=== PATIENT | male | born 1945 | race Caucasian/White ===

== ENCOUNTER 2022-08-30 09:02 | Outpatient (CLI) | payer OTHER, SELFPAY ==
[2022-08-30 14:10] LABS: PSA Screen* 0.83 ng/mL (0.10-4.00)
== END 2022-08-30 09:03 | disposition home or self-care (01) ==
LOC: FBOREF 09:03
PROVIDERS: PCP Family Medicine; Visit Provider Family Medicine
DX: Z12.5 Encounter for screening for malignant neoplasm of prostate (principal)
CPT/HCPCS: 84153

== ENCOUNTER 2022-10-18 10:06 | Emergency (ER) | payer OTHER, SELFPAY ==
[2022-10-18 10:25] VITALS: BP 140/64; PULSE 52; RESP 24; TEMP 37; O2SAT 96; BMI 26.2
[2022-10-18 11:30] VITALS: BP 140/69; RESP 18; O2SAT 98
--- NOTE | 2022-10-18 11:45 | ED.GENADULT ---
HPI - General Adult General Chief complaint: Abdominal Pain Stated complaint: Abdominal pain Time Seen by Provider: 10/18/22 11:26 Source: patient and family Mode of arrival: ambulatory Limitations: no limitations History of Present Illness HPI narrative: 77-year-old male presents to emergency department with a 3 week history of epigastric area pain. It is constant and achy and onset was gradual. It is accompanied by nausea but with no vomiting. Patient reports that it does not seem to be influenced by food. It does improve somewhat with Tylenol. He denies heavy usage of NSAIDs. Denies chest pain, no breathing difficulty. He is a smoker. He admits to daily alcohol use with wonder per day and typically 4 beers per day on the weekends. He denies prior endoscopy, no history of previous GI bleed or stomach ulcers. He reports that he had a colonoscopy 3 years ago which was uncomplicated and did not show abnormalities. He states that his bowels move slowly overall which he attributes to his soft foods diet because of his dentures. He has not been using laxatives his last bowel movement was a couple of days ago which is not abnormal for him. There has been no blood in his stools, no trauma or injury. Abdomen is not seem distended and there has been no significant weight loss. He has not tried taking any antacids to help with his symptoms. No prior history of pancreatitis or gallbladder disease. Past medical history notable for hypertension, diabetes, coronary artery disease. He had 4 stents placed about 7 years ago. He has also had diverticulitis surgically he reports he has had a hip replacement, bilateral shoulder replacements. No intra-abdominal or chest surgeries in the past other than the cardiac stents but no open procedures. Family history is negative for gallbladder disease, GI cancers. Socially alcohol and tobacco use as stated above. Past medical history is notable for only the GI symptoms as described above, otherwise all other systems are at baseline or negative times 15 systems. Related Data Home Medications Medication Instructions Recorded Confirmed acetaminophen 500 mg oral powder 500 mg PO Q6H PRN 07/09/22 08/30/22 packet (Tylenol Extra Strength) aspirin 81 mg tablet,delayed 81 mg PO QDAY 07/09/22 08/30/22 release gabapentin 300 mg capsule 300 - 600 mg PO .QHS 07/09/22 08/30/22 nitroglycerin 0.4 mg sublingual 0.4 mg sublingual Q5M PRN 07/09/22 08/30/22 tablet (Nitrostat) Ocular lubricant intraocular 08/27/22 Previous Rx's Medication Instructions Recorded amlodipine 5 mg tablet 5 mg PO QDAY #90 tabs 07/16/22 metformin 1,000 mg tablet 1,000 mg PO QDAY #90 tabs 07/20/22 meloxicam 15 mg tablet 15 mg PO QDAY #30 tabs 08/30/22 simvastatin 20 mg tablet 20 mg PO .COMPLEX #90 tabs 09/03/22 losartan 50 mg tablet 50 mg PO QDAY #90 tabs 09/21/22 omeprazole 20 mg capsule,delayed 20 mg PO DAILY #30 caps 10/18/22 release sucralfate 1 gram tablet (Carafate) 1 g PO QID PRN Acid reflux or 10/18/22 stomach ache #20 tabs Allergies Allergy/AdvReac Type Severity Reaction Status Date / Time lisinopril Allergy Unknown Unknown Verified 08/30/22 08:27 rosuvastatin Allergy Unknown Unknown Verified 08/30/22 08:27 [facility] Medical History Adenomatous polyp of colon Arteriosclerotic cardiovascular disease Bicuspid aortic valve Chronic neck and back pain Chronic obstructive pulmonary disease Diabetic neuropathy Discoid lupus erythematosus (1995) Erectile dysfunction Gastroesophageal reflux disease Hearing loss History of arterial embolism (2004) History of squamous cell carcinoma of skin (09/16/14) Hyperlipidemia Hypertensive kidney disease, stage III (03/17/17) Hypertensive retinopathy Obstructive sleep apnea syndrome Peripheral vascular disease Poorly fitting dentures Tobacco abuse Type 2 diabetes mellitus with diabetic neuropathy Surgical History History of coronary artery stent placement (1980) Status post rotator cuff repair (2006) 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 3 children. Retired. 10 cigars per day. Social EtOH. Smoking Status: Current every day smoker How often do you have a drink containing alcohol: 4 or more times a week AUDIT-C Alcohol total score: 4 Non-prescribed substance use: denies use Little interest or pleasure in doing things: not at all Feeling down, depressed, or hopeless: not at all Exam Const: Vital Signs, click to edit/add: Vital Signs - 24 hr 10/18/22 10:25 10/18/22 11:30 Temperature 98.6 F Pulse Rate [Right Pulse Oximeter] 52 L Respiratory Rate 24 18 Blood Pressure [Ri ght Upper Arm] 140/64 H 140/69 H Pulse Oximetry 96 98 Oxygen Delivery Me thod Room Air Room Air Documenting provider has reviewed patient's vital signs: yes Common normals: no apparent distress General appearance: cooperative Other: Good historian. Well kempt. HENMT: Common normals: normocephalic Head and scalp: normocephalic Face and sinus: normal facial exam Mouth: oral and palatal mucosa normal Throat: posterior oropharynx normal Eye: Common normals: conjunctivae normal Conjunctiva: conjunctiva(e) normal Other: Normal visual tracking Neck & C-Spine: Common normals: full ROM and no lymphadenopathy Chest: Common normals: palpation of chest normal Resp: Common normals: normal respiratory effort, no use of accessory muscles and clear to auscultation bilaterally Effort & inspection: able to speak in complete sentences Auscultation: clear to auscultation bilaterally Cardio: Common normals: regular rate, regular rhythm, S1 normal heart sound, S2 normal heart sound, no murmurs and peripheral pulses 2+ throughout Rate: regular rate Rhythm: regular rhythm Heart sounds: S1 normal and S2 normal Peripheral pulses: pulses 2+ throughout GI: Other: Abdomen appears nondistended. Bowel sounds are normoactive in all 4 quadrants, quite active. There is mild tenderness to the epigastric region only, no rebound tenderness or guarding. No mass. No hernia. No hepatosplenomegaly. Back & Pelvis: Common normals: thoracic and lumbar spine normal to inspection Extremity: Common normals: normal to inspection, normal capillary refill and no pedal edema Neuro: Speech: speech normal Gait (neuro): normal gait Motor exam: strength 5/5 throughout, no tremor noted and no movement abnormalities noted Psych: Common normals: thought process normal, cooperative and speech normal Attitude: engaged Speech: normal speech Thought process: normal thought process Insight: insight good Judgement: judgment good Skin: Common normals: no rashes or lesions noted General skin exam: no rashes or lesions noted Course Vital Signs Vital signs: Initial Vital Signs Temperature 98.6 F 10/18/22 10:25 Temperature Source Temporal Artery Scan 10/18/22 10:25 Pulse Rate 52 L 10/18/22 10:25 Respiratory Rate 24 10/18/22 10:25 Blood Pressure 140/64 H 10/18/22 10:25 Blood Pressure Mean 89 10/18/22 10:25 Blood Pressure Position Sitting 10/18/22 10:25 Pulse Oximetry 96 10/18/22 10:25 Oxygen Delivery Method 10/18/22 10:25 Vital Signs Temperature 98.6 F 10/18/22 10:25 Pulse Rate 52 L 10/18/22 10:25 Respiratory Rate 24 10/18/22 10:25 Blood Pressure 140/64 H 10/18/22 10:25 Pulse Oximetry 96 10/18/22 10:25 Oxygen Delivery Method 10/18/22 10:25 Temperature 98.6 F 10/18/22 10:25 Pulse Rate 52 L 10/18/22 10:25 Respiratory Rate 18 10/18/22 11:30 Blood Pressure 140/69 H 10/18/22 11:30 Pulse Oximetry 98 10/18/22 11:30 Oxygen Delivery Method 10/18/22 11:30 Medical Decision Making MDM Narrative Medical decision making narrative: Patient without severe acute abdominal exam findings, no fever. No clinical signs of dehydration or inability to take p.o. nutrition. I am suspecting gastritis possibly worsened by a regular alcohol use and/or smoking versus pancreatitis, liver disease or and other intra-abdominal pathology. I recommended a dose of omeprazole and Carafate and labs to investigate for the other concerns. EKG and troponin because of his cardiac history. If no improvement on meds and or any abnormal labs, would then recommend CT scan of the abdomen and pelvis. Patient agreeable to this plan. Update: Marked improvement with Carafate and omeprazole. Do not recommend further workup. Results of normal labs reviewed with patient. Begin omeprazole 20 mg once daily and follow up with primary care in 3-4 weeks if not improving, would recommend endoscopy. Discussed p.r.n. use of Carafate for symptomatic control. He verbalizes understanding and agreement. All questions answered, please see discharge instructions Lab Data Lab results reviewed: Yes I reviewed the patient's lab results Labs: Lab Results 10/18/22 10/18/22 Range/Units 11:55 11:55 WBC 7.81 (4.50-11.00) K/uL RBC 4.23 L (4.30-5.90) m/uL Hgb 13.6 (13.5-17.5) gm/dL Hct 41.0 (37.0-53.0) % MCV 97 (80-100) fL MCH 32 (26-34) pg MCHC 33 (32-36) gm/dL RDW Coeff of Jess 12.8 (11.5-15.5) % Plt Count 213 (140-440) K/uL Neut % (Auto) 69.0 (42.0-72.0) % Lymph % (Auto) 17.5 L (20-44) % [place] % (Auto) 8.6 (0.0-11.0) % Eos % (Auto) 4.4 (0.0-7.0) % Baso % (Auto) 0.5 (0.0-3.0) % Neut # (Auto) 5.39 (1.7-7.0) K/uL Lymph # (Auto) 1.40 (0.90-2.90) K/uL [place] # (Auto) 0.70 (0.00-0.90) K/UL Eos # (Auto) 0.34 (0.00-0.50) K/uL Baso # (Auto) 0.04 (0.00-0.30) K/uL Abs Immat Gran (auto) 0.00 (0.00-0.30) K/uL Imm/Tot Granulo (auto) 0.0 % Sodium 140 (135-149) mmol/L Potassium 5.4 H (3.6-5.1) mmol/L Chloride 106 (96-114) mmol/L Carbon Dioxide 28 (20-32) mmol/L BUN 24 (7-30) mg/dL Creatinine 1.0 (0.5-1.5) mg/dL Estimated Creat Clear 61.75 Estimated GFR 78 ml/min Glucose 72 (60-115) mg/dL Calcium 9.7 (8.4-10.6) mg/dL Total Bilirubin 0.6 (0.1-1.5) mg/dL AST 27 (12-35) U/L ALT 18 (4-50) U/L Alkaline Phosphatase 29 L (40-150) U/L Troponin I < 0.01 L (0.01-0.04) ng/mL C-Reactive Protein 1.5 H (0.5-1.0) mg/dL Total Protein 8.2 (6.0-8.3) g/dL Albumin 4.5 (3.3-5.0) g/dL Lipase 166 (23-300) U/L ECG Data Attestation: I personally reviewed and interpreted this ECG as follows: Prior ECG tracings: not available for review Interpretation: Normal sinus rhythm, with mild sinus bradycardia rate of 53 with septal changes most notable in V3 which appear chronic. [place] is mildly deviated to left, also likely chronic. No acute ischemia Discharge Plan Discharge Clinical Impression: Gastroesophageal reflux disease Patient Disposition: Home w/ Parent or Adult Condition: Improved Instructions: Diet for Stomach Ulcers and Gastritis (ED), GERD (Gastroesophageal Reflux Disease) (DC) Additional Instructions: I suspect that your symptoms are from gastritis, and inflammation of the stomach. This happens more with age, because of the some of the medicines that you are on, and unfortunately is worsened by smoking and alcohol. I would love to see you quit smoking and cut back on her alcohol. You should also avoid any carbonated beverages. I would like to start you on a medicine called omeprazole, take 20 mg once daily in the morning 30 minutes prior to a meal. Do this for the next 4 weeks and follow up with her primary care doctor. If things have not improved markedly, you should be scheduled for an endoscopy to look for ulcers, an infection called H.pylori or other abnormalities. I will also give you a prescription for Carafate, the 2nd medicine that I gave you here in the emergency room. Use this if your symptoms are bothersome but only on an as-needed basis. For most people, once they start the omeprazole their symptoms improved markedly within a couple of days and you no longer need the Carafate. You may use the Carafate up to 4 times daily. Activity Level: No Restrictions Discharge Diet: Regular Prescriptions: New omeprazole 20 mg capsule,delayed release(DR/EC) 20 mg PO DAILY Qty: 30 2RF sucralfate [Carafate] 1 gram tablet 1 g PO QID PRN (Reason: Acid reflux or stomach ache) Qty: 20 0RF No Action Ocular lubricant intraocular gabapentin 300 mg capsule 300 - 600 mg PO .QHS Tylenol Extra Strength 500 mg powder in packet 500 mg PO Q6H PRN nitroglycerin [Nitrostat] 0.4 mg tablet, sublingual 0.4 mg sublingual Q5M PRN Rx Instructions: do not exceed 3 doses per episode aspirin 81 mg tablet,delayed release (DR/EC) 81 mg PO QDAY amlodipine 5 mg tablet 5 mg PO QDAY Qty: 90 1RF metformin 1,000 mg tablet 1,000 mg PO QDAY Qty: 90 3RF meloxicam 15 mg tablet 15 mg PO QDAY Qty: 30 12RF simvastatin 20 mg tablet 20 mg PO .COMPLEX Qty: 90 1RF Rx Instructions: 20 mg orally M, W, F; losartan 50 mg tablet 50 mg PO QDAY Qty: 90 1RF Follow Up/Referrals: Johnson Madera MD [Primary Care Provider] - Stand Alone [facility]: [facility] Info Inst[facility]
[2022-10-18 12:00] VITALS: BP 146/76; PULSE 51; O2SAT 96
[2022-10-18] MEDS: SUCRALFATE 1 GM TABLET PO (12:03)
[2022-10-18] MEDS: OMEPRAZOLE 20 MG CAPSULE DR 40 MG PO (12:03)
[2022-10-18 12:11] LABS: Basophils Absolute Auto 0.04 K/uL (0.00-0.30); Basophils Percent Auto 0.5 % (0.0-3.0); Eosinophils Absolute Auto 0.34 K/uL (0.00-0.50); Eosinophils Percent Auto 4.4 % (0.0-7.0); Hemoglobin* 13.6 gm/dL (13.5-17.5); Lymphocytes Percent Auto 17.5 % (20-44); Mean Corpuscular HGB Conc 33 gm/dL (32-36); Mean Corpuscular Hemoglobin 32 pg (26-34); Mean Corpuscular Volume 97 fL (80-100); Monocytes Percent Auto 8.6 % (0.0-11.0); Neutrophils Absolute Auto 5.39 K/uL (1.7-7.0); Platelet Count* 213 K/uL (140-440); RDW Coefficient of Variation % 12.8 % (11.5-15.5); Red Blood Count 4.23 m/uL (4.30-5.90); White Blood Count* 7.81 K/uL (4.50-11.00)
[2022-10-18 12:21] LABS: Albumin* 4.5 g/dL (3.3-5.0); Chloride* 106 mmol/L (96-114)
[2022-10-18 12:22] LABS: Potassium* 5.4 mmol/L (3.6-5.1); Sodium* 140 mmol/L (135-149)
[2022-10-18 12:24] LABS: Alanine Aminotransferase* 18 U/L (4-50); Alkaline Phosphatase* 29 U/L (40-150); Aspartate Amino Transferase* 27 U/L (12-35); Bilirubin Total* 0.6 mg/dL (0.1-1.5); Blood Urea Nitrogen* 24 mg/dL (7-30); Carbon Dioxide* 28 mmol/L (20-32); Est. Creatinine Clearance* 61.75; Estimated Glomerular Filt Rate 78 ml/min; Glucose* 72 mg/dL (60-115); Lipase* 166 U/L (23-300); Total Protein* 8.2 g/dL (6.0-8.3)
[2022-10-18 12:25] LABS: Calcium* 9.7 mg/dL (8.4-10.6)
[2022-10-18 12:27] LABS: C Reactive Protein* 1.5 mg/dL (0.5-1.0)
[2022-10-18 12:29] LABS: Slide Review Reflex No
[2022-10-18 12:30] VITALS: BP 148/70; PULSE 50; O2SAT 98
[2022-10-18 12:38] LABS: Troponin I* < 0.01 ng/mL (0.01-0.04)
== END 2022-10-18 13:04 | disposition home or self-care (01) ==
PROVIDERS: Emergency Provider Family Medicine; PCP Family Medicine
DX: K21.9 Gastro-esophageal reflux disease without esophagitis (principal)
CPT/HCPCS: 36415; 80053; 83690; 84484; 85025; 86140; 93005; 99283; 99284; A9270

== ENCOUNTER 2023-03-01 09:58 | Outpatient (CLI) | payer OTHER, SELFPAY ==
[2023-03-01 13:42] LABS: Basophils Absolute Auto 0.02 K/uL (0.00-0.30); Basophils Percent Auto 0.3 % (0.0-3.0); Eosinophils Absolute Auto 0.29 K/uL (0.00-0.50); Eosinophils Percent Auto 4.2 % (0.0-7.0); Hematocrit 46.2 % (37.0-53.0); Hemoglobin* 15.3 gm/dL (13.5-17.5); Immature Granulocytes Abs Auto 0.12 K/uL (0.00-0.30); Immature Granulocytes Pct Auto 1.7 %; Lymphocytes Percent Auto 19.9 % (20-44); Mean Corpuscular HGB Conc 33 gm/dL (32-36); Mean Corpuscular Hemoglobin 31 pg (26-34); Mean Corpuscular Volume 95 fL (80-100); Neutrophils Absolute Auto 4.53 K/uL (1.7-7.0); Neutrophils Percent Auto 64.9 % (42.0-72.0); Platelet Count* 250 K/uL (140-440); RDW Coefficient of Variation % 12.3 % (11.5-15.5); Red Blood Count 4.87 m/uL (4.30-5.90); White Blood Count* 6.98 K/uL (4.50-11.00)
[2023-03-01 13:53] LABS: Slide Review Reflex No
[2023-03-01 14:02] LABS: Chloride* 105 mmol/L (96-114)
[2023-03-01 14:03] LABS: Potassium* 5.1 mmol/L (3.6-5.1); Sodium* 137 mmol/L (135-149)
[2023-03-01 14:05] LABS: Creatinine* 1.1 mg/dL (0.5-1.5); Estimated Glomerular Filt Rate 70 ml/min
[2023-03-01 14:06] LABS: Blood Urea Nitrogen* 19 mg/dL (7-30); Calcium* 9.1 mg/dL (8.4-10.6); Carbon Dioxide* 25 mmol/L (20-32); Glucose* 124 mg/dL (60-115)
== END 2023-03-01 09:59 | disposition home or self-care (01) ==
PROVIDERS: PCP Family Medicine; Visit Provider Family Medicine
DX: R50.9 Fever, unspecified (principal); I10 Essential (primary) hypertension; E78.5 Hyperlipidemia, unspecified; I12.9 Hypertensive chronic kidney disease with stage 1 through stage 4 chronic kidney disease, or unspecified chronic kidney disease; N18.30 Chronic kidney disease, stage 3 unspecified
CPT/HCPCS: 80048; 84443; 85025

== ENCOUNTER 2023-06-30 08:58 | Outpatient (CLI) | payer OTHER, SELFPAY ==
[2023-06-30 13:30] LABS: Chloride* 104 mmol/L (96-114)
[2023-06-30 13:31] LABS: Potassium* 4.6 mmol/L (3.6-5.1); Sodium* 139 mmol/L (135-149)
[2023-06-30 13:33] LABS: Creatinine* 1.7 mg/dL (0.5-1.5); Estimated Glomerular Filt Rate 41 ml/min
[2023-06-30 13:34] LABS: Anion Gap 11 mEq/L (7-15); Blood Urea Nitrogen* 28 mg/dL (7-30); Calcium* 9.5 mg/dL (8.4-10.6); Carbon Dioxide* 24 mmol/L (20-32); Glucose* 161 mg/dL (60-115)
[2023-06-30 13:44] LABS: NT Pro B Type NatriureticPept* 4130 pg/mL
== END 2023-06-30 08:59 | disposition home or self-care (01) ==
PROVIDERS: PCP Family Medicine; Visit Provider Family Medicine
DX: I50.20 Unspecified systolic (congestive) heart failure (principal)
CPT/HCPCS: 80048; 83880

== ENCOUNTER 2023-07-13 15:12 | Outpatient (REF) | payer OTHER, SELFPAY ==
[2023-07-13 16:56] LABS: Chloride* 106 mmol/L (96-114); Potassium* 4.5 mmol/L (3.6-5.1); Sodium* 140 mmol/L (135-149)
[2023-07-13 16:59] LABS: Anion Gap 9 mEq/L (7-15); Blood Urea Nitrogen* 28 mg/dL (7-30); Carbon Dioxide* 25 mmol/L (20-32); Creatinine* 1.7 mg/dL (0.5-1.5); Estimated Glomerular Filt Rate 41 ml/min
[2023-07-13 17:00] LABS: Calcium* 9.9 mg/dL (8.4-10.6); Glucose* 109 mg/dL (60-115)
[2023-07-13 17:11] LABS: NT Pro B Type NatriureticPept* 2570 pg/mL
== END 2023-07-13 15:13 | disposition home or self-care (01) ==
LOC: NPINS 15:12
PROVIDERS: PCP Family Medicine; Visit Provider Internal Medicine
DX: I50.22 Chronic systolic (congestive) heart failure (principal)
CPT/HCPCS: 80048; 83880

== ENCOUNTER 2023-08-09 08:23 | Outpatient (REF) | payer OTHER, SELFPAY ==
[2023-08-09 08:48] LABS: Chloride* 108 mmol/L (96-114)
[2023-08-09 08:49] LABS: Potassium* 4.5 mmol/L (3.6-5.1); Sodium* 142 mmol/L (135-149)
[2023-08-09 08:51] LABS: Creatinine* 1.7 mg/dL (0.5-1.5); Estimated Glomerular Filt Rate 41 ml/min
[2023-08-09 08:52] LABS: Anion Gap 11 mEq/L (7-15); Blood Urea Nitrogen* 27 mg/dL (7-30); Calcium* 9.1 mg/dL (8.4-10.6); Carbon Dioxide* 23 mmol/L (20-32); Glucose* 99 mg/dL (60-115)
== END 2023-08-09 08:24 | disposition home or self-care (01) ==
LOC: NPINS 08:23
PROVIDERS: PCP Family Medicine; Visit Provider Internal Medicine Cardiovascular Disease
DX: I50.22 Chronic systolic (congestive) heart failure (principal)
CPT/HCPCS: 80048

== ENCOUNTER 2024-02-14 10:28 | Outpatient (CLI) | payer OTHER, SELFPAY ==
--- OUTSIDE RECORDS SUMMARY | 2024-02-14 10:36 | XMS_ITS ---
Author Name Unknown Organization [facility] Address [address] [place] [address] Care Team Providers Care Appraiser Timber Name Role Phone Unavailable Unavailable Unavailable Surgery Details Not on file Complications Check Surgery Details section. Procedure Estimated Blood Loss Check Surgery Details section. Procedure Findings Check Surgery Details section. Procedure Specimens Taken Check Surgery Details section.
--- OUTSIDE RECORDS SUMMARY | 2024-02-14 10:36 | XMS_ITS | Encounter Summary ---
Author Name Unknown Organization [facility] Address [address] [place] [address] Care Team Providers Care General Adjuster Name Role Phone Elsewhere, Pcp Primary Care Provider Unavailabl e Encounter Details Date Type Department Care Team (Late st Contact Info) Description 05/15/2008 Historical Ophthalmology [facility]ST [facility] Nancy Villanueva M.D. Social History Tobacco Use Types Packs/Day Years Used Date Smoking Tobacco: Never Assessed Sex and Gender Information Value Date Recorded Sex Assigned at Not on file Gender Identity Not on file Sexual Orientation Not on file documented as of this encounter Progress Notes * Nancy Villanueva M.D. - 05/15/2008 9:45 AM CDT Eye General CHIEF COMPLAINT Diabetic eye exam HISTORY OF PRESENT ILLNESS Non insulin dependent diabetic. blood sugars are stable. last A1C 5.8. At night when he closes his eyes he can see floaters. He was seen by his local Allocation Analyst for this and was told these were floaters. He denies changes with his vision. No flashes of light. JAL: DM dx in 11/14. He sees Dr. Horton in [place] who found a lot of scarring - no outside eye notes available to me. IMPRESSION / REPORT / PLAN Consult requested by: Nestor Erazo [id number] #1 Diabetes mellitus, no eye complications. Plan: monitor periodically. He is seen regularly at home. #2 Hypertension, with ocular findings. DIAGNOSIS #1 Diabetes mellitus, no eye complications. #2 Hypertension, with ocular findings. CD Reports - EYEGEN Id: [id number] Status: Fnl documented in this encounter Plan of Treatment Not on file documented as of this encounter Visit Diagnoses Not on filedocumented in this encounter Care Teams General Adjuster Relationship Specialty Start Date End Date Elsewhere, Pcp PCP - General Family Medicine 11/10/20 documented as of this encounter
--- OUTSIDE RECORDS SUMMARY | 2024-02-14 10:36 | XMS_ITS | Referral Summary ---
Author Name Unknown Organization [facility] Address [address] [place] [address] Care Team Providers Care Lard Bleacher Name Role Phone Elsewhere, Pcp Primary Care Provider Unavailabl e Source Comments Patient records contain information from all sites at [facility]. For routine questions regarding patient records, call [phone] during business hours, M-F 8:00 AM - 5:00 PM Central Time. Record requests for emergency care only can be directed to [phone] at any time.[facility] Allergies Active Allergy Reactions Criticality Noted Date Comments Gabapentin Other (see comments) 03/15/2011 Sore throat Lisinopril Other (see comments) 06/13/2014 Leg cramps Rosuvastatin Myalgia Low 02/26/2020 Medications Medication Sig Dispensed Refills Start Date End Date Status acetaminophen (for_TYLENOL) 500 mg tablet Take 1 tablet by mouth every morning. 0 03/04/2011 Active amoxicillin (for_AMOXIL) 500 mg capsule Take by mouth See Admin Instructions. 0 11/29/2016 Active ASPIRIN ORAL Take 1 tablet by mouth every morning. 0 11/24/2015 Active LANOLIN/MINERAL OIL/PETROLATUM (EYE LUBRICANT OPHT) Administer 1 drop into both eyes every 4 (four) hours as needed. 0 09/18/2015 Active metoprolol succinate (TOPROL-XL) 25 mg 24 hr tabletIndications: Hypertension And Chronic Kidney Disease Stage 3 And Heart Disease Without Congestive Heart Failure (HCC) Take 1 tablet (25 mg total) by mouth at bedtime. 90 tablet 3 04/11/2020 Active metFORMIN (GLUCOPHAGE) 1,000 mg tabletIndications: Peripheral Vascular Disease (HCC),Diabetes Mellitus Type 2 With Diabetic Neuropathy (HCC) Take 1 tablet (1,000 mg total) by mouth 2 (two) times a day with meals. 180 tablet 3 04/11/2020 Active simvastatin (ZOCOR) 20 mg tabletIndications: Peripheral Vascular Disease (HCC),Hypertension And Chronic Kidney Disease Stage 3 And Heart Disease Without Congestive Heart Failure (HCC) Take 1 tablet (20 mg total) by mouth 3 (three) times a week. 36 tablet 3 07/25/2020 Active amLODIPine (NORVASC) 5 mg tabletIndications: Hypertension And Chronic Kidney Disease Stage 3 And Heart Disease Without Congestive Heart Failure (HCC) Take 1 tablet (5 mg total) by mouth at bedtime. 90 tablet 3 07/25/2020 Active hydroCHLOROthiazid e (MICROZIDE) 12.5 mg capsule Take 1 capsule (12.5 mg total) by mouth daily. 90 capsule 3 10/29/2020 Active Additional Information Patient not taking.Reported on 06/17/2021 losartan (COZAAR) 25 mg tabletIndications: Hypertension Essential Primary Take 2 tablets (50 mg total) by mouth at bedtime. 180 tablet 3 03/19/2021 Active Active Problems Patient Care Coordination No te Formatting of this note migh t be different from the original. Spouse: Qiana Children: geremias luna, lucy, 11 grandbabies Work: no JUAN F on file for: Qiana Cell #: [phone] Trinh pedersen goes to [place] Problem Noted Date Diagnosed Date Hyperlipidemia 2018 Hypertension And Chronic Kid david Disease Stage 3 And Heart Disease Without Congestive Heart Failure 03/17/2017 Overview: Hypertension (HTN) And CKD Stage 1-4 & Heart Dis Without CHF Arthroplasty Total Hip Replacement Status Post R ight 09/21/2016 Coronary Stent Status Post 09/02/2016 Arthritis Hip 09/02/2016 Albuminuria 07/29/2016 Overview: He takes Losartan. Diabetes Mellitus Type 2 With Diabetic Neuropath y 03/29/2016 Overview: DM2 Neuropathy Apnea Sleep Obstructive 03/29/2016 Overview: CPAP 9 cm water pressure. AHI: 49.6. 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 Central canal stenosis. Foraminal narrowing. Radiculopathy Lumbar 03/20/2014 Pain Limb Generalized 06/12/2013 Pain Low Back Unspecified 06/12/2013 Keratosis Actinic 02/07/2012 Bradycardia Sinus 03/31/2011 Overview: Alopecia Areata 03/31/2011 Pain Back 03/31/2011 Lichen Planus 03/31/2011 Overview: Benign chronic dermatitis. Polyp Colon 03/31/2011 Overview: Small polyp with no hyperplasia or dysplasia. Peripheral Vascular Disease 03/20/2011 Overview: Peripheral Vascular Disease Lupus Erythematosus 03/20/2011 Overview: Biopsy of skin from right mastiod showed lupus eryhtematosus. Done at [facility]. Diverticulosis Colon 03/20/2011 Overview: Per CTA of Abdomen done at [facility]. Renal Cyst Disease 03/20/2011 Overview: Per CTA of Abdomen done at [facility]. Sprain Rotator Cuff Initial 03/20/2011 Overview: High grade supraspinatous and infraspinatous. MRI done at [facility]. 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 Hypertensive Retinopathy 05/15/2008 Atherosclerotic Heart Diseas e Of [place] Coronary Artery Without Angina Pectoris 05/14/2008 Abuse Tobacco Smoking 05/14/2008 Rotator Cuff Disorder 05/14/2008 Resolved Problems Problem Noted Date Diagnosed Date Resolved Date Spasm Muscle 03/17/2017 2018 Embolism Thrombosis Lower Extremity Artery 07/29/2016 2018 Overview: Arterial Embolism, Right foot Hx Immunizations Name Administration Dates Next Due Influenza Split 08/21/2015,09/07/2007 Influenza, Seasonal, Injectable 10/12/2012,09/10 Influenza, Unspecified 07/29/2016,2014,10/29/2014,2011,07/22/2011,09/07/2007 PCV13 03/03/2015 PPSV23(Discontinued) 06/08/2012,12/12/2007 Td (Adult), adsorbed 09/10/2003 Td, (Adult) Unspecified 09/10/2003 Tdap 06/13/2014 influenza high dose (65 year s or older) (PF) 08/07/2019,08/04/2018,07/29/2016,2014,08/21/2015 Social History Tobacco Use Types Packs/Day Years Used Date Smoking Tobacco: Every Day Cigarettes 0.5 Smokeless Tobacco: Never Tobacco Cessation:Ready to Q uit: No; Counseling Given: Yes Alcohol Use Standard Drinks/Week Comments Yes 0 (1 standard drink = 0.6 oz pur e alcohol) 1 drink per day AUDIT-C Answer Date Recorded Q1: How often do you have a drink containing alcohol? 4 or more times a week 07/25/2020 Q2: How many drinks containi ng alcohol do you have on a typical day when you are drinking? 1 or 2 0 Q3: How often do you have si x or more drinks on one occasion? Never 07/25/2020 PHQ-2 Answer Date Recorded PHQ-2 Score 0 01/15/2020 Nutrition Answer Date Recorded Nutrition: EVOO Fat Source Unknown 12/31 Nutrition: Servings of Fruits/Vegetables per Day Not on file 12/31/2020 Dental Answer Date Recorded Dental: Regular Dentist Unknown 12/31/19 21 Sex and Gender Information Value Date Recorded Sex Assigned at Not on file Gender Identity Not on file Sexual Orientation Not on file Last Filed Vital Signs Vital Sign Reading Time Taken Comments Blood Pressure 138/72 06/17/2021 11:44 AM CDT Pulse 50 06/17/2021 11:44 AM CDT Temperature 36.3 ??C (97.3 ??F) 07/25/2020 11:36 AM C DT Respiratory Rate 16 07/25/2020 11:36 AM CDT Oxygen Saturation 97% 07/25/2020 11:36 AM CDT Inhaled Oxygen Concentration - - Weight 83.7 kg (184 lb 8.4 oz) 06/17/2021 11:43 AM CDT Height 171.9 cm (5' 7.68) 06/17/2021 11:43 AM C DT Body Mass Index 28.33 06/17/2021 11:43 AM CDT Plan of Treatment Not on file Medical Devices Implanted Type Area Furniture Mover Device Identifier Shelf Expiration Date Model / Serial / Lot Premier 3.0 X 12 - [employer] [id number] Implanted:Qty: 1 on 09/09/2015 Cardiac Stent [employer] Description:Device Manufactu rer - [employer]. Device Status Text - [id number]. Premier 3.0 X 28 - [employer] [id number] Implanted:Qty: 1 on 09/09/2015 Cardiac Stent [employer] Description:Device Manufactu rer - [employer]. Device Status Text - [id number]. Premier 4.0 X 20 - [employer] [id number] Implanted:Qty: 1 on 09/09/2015 Cardiac Stent [employer] Description:Device Manufactu rer - [employer]. Device Status Text - [id number]. Hip Implant Hip Implant Right: Hip Hip Implant- 6 Implanted:2015 (Quantity not on file) Hip Implant Right: Hip Care Teams Lard Bleacher Relationship Specialty Start Date End Date Elsewhere, Pcp PCP - General Family Medicine 11/10/20
--- OUTSIDE RECORDS SUMMARY | 2024-02-14 10:36 | XMS_ITS | Clinical Summary ---
Author Name Unknown Organization [facility] Address [address] [place] [address] Care Team Providers Care Secondary English Teacher Name Role Phone Elsewhere, Pcp Primary Care Provider Unavailabl e Source Comments Patient records contain information from all sites at [facility]. For routine questions regarding patient records, call [phone] during business hours, M-F 8:00 AM - 5:00 PM Central Time. Record requests for emergency care only can be directed to [phone] at any time.[facility] Allergies Active Allergy Reactions Criticality Noted [...] F on file for: Qiana Cell #: [phone] Trinh pedersen goes to [place] Problem Noted Date Diagnosed Date Hyperlipidemia 2018 [...] Risk Medication 03/29/2016 Bicuspid Aortic Valve 10/15/2015 Fire Prevention Chief (Current) Anticoagulant Treatment 08/08 Primary Osteoarthritis Cervical [...] right mastiod showed lupus eryhtematosus. Done at [facility]. Diverticulosis Colon 03/20/2011 Overview: Per CTA of Abdomen done at [facility]. Renal Cyst Disease 03/20/2011 Overview: Per CTA of Abdomen done at [facility]. Sprain Rotator Cuff Initial 03/20/2011 Overview: High grade supraspinatous and infraspinatous. MRI done at [facility]. 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 Abuse [...] (65 year s or older) (PF) 08/07/2019,08/04/2018,07/29/2016,2014,08/21/2015 Family History Medical History Relation Name Comments Heart murmur Brother Peripheral vascular disease Brother Urolithiasis Brother Aneurysm Father Coronary artery disease Father Dementia Father Heart attack Father Heart failure Father Hypertension Father Osteoarthritis Father Peripheral vascular disease Father Skin cancer Father Cataracts Mother Coronary artery disease Mother Diabetes Mother End stage renal disease Mother Glaucoma Mother Breast cancer Sister Depression Sister Kidney disease Sister Ovarian cancer Sister Urolithiasis Sister Relation Name Status Comments Brother Father Mother (Age 79) Sister Social History Tobacco Use Types Packs/Day Years [...] 06/17/2021 11:43 AM CDT Plan of Treatment Health Maintenance Due Date Last Done Comments Office Visit for Blood Press ure Check / Re-check 1945 Hepatitis B Vaccines (1 of 3 - Risk 3-dose series) 2007 Zoster Vaccines (2 of 3) 10/04/2017 08/09/2017 Dilated Eye Exam 07/24/2020 07/24/2019 (Per formed elsewhere), 07/19/2018 (Performed elsewhere), 07/18/2017, Additional history exists Diabetic Office Visit with F oot Exam 01/14/2021 01/15/2020, 03/08/2019, 03/08/2019, Additional history exists Hemoglobin A1C 04/24/2021 10/24/2020, 06/2020, 01/15/2020, Additional history exists Urine Albumin 07/25/2021 07/25/2020, 07/10, 08/03/2018, Additional history exists COVID-19 Vaccine (2022- 4 season) 2023 05/24/2022, 08/06/2021, 01/06/2021, Additional history exists Influenza Vaccine (#1) 2023 , 08/05/2021, 07/30/2020, Additional history exists Depression Screening (Annual PHQ-2) 11/07/2023 Fall Risk Screen (Annual) 11/07/2023 DTaP,Tdap,and Td Vaccines (2 - Td or Tdap) 06/13/2024 06/13/2014, 09/10/2003, 09/10/2003 Creatinine Level (Kidney Fun ction Test) 09/27/2024 09/27/2023, 06/22/2023, 06/03/2023, Additional history exists Potassium Level 09/27/2024 09/27/2023, 06/07, 06/03/2023, Additional history exists Sodium Level 09/27/2024 09/27/2023, 06/07, 06/03/2023, Additional history exists Abdominal Aortic Aneurysm (A AA) Screen Discontinued 06/01/2012, 12/10/2004 Colonoscopy Discontinued 09/16/2014, 09/16/2014 Colonoscopy Discontinued 09/16/2014, 09/16/2014 Colorectal Cancer Screening Discontinued Colorectal Cancer Surveillance Discontinued Pneumococcal vaccine (65+ years) Completed 03/03/2015, 06/08/2012, 12/12/2007 Hepatitis C Screening Completed 03/15/[address] Colonography Discontinued Cologuard Discontinued FIT Discontinued Medical Devices Implanted Type Area Deep Fat Fry Cook Device Identifier Shelf Expiration Date Model / Serial / Lot Premier 3.0 X 12 - Aguilar [id number] Implanted:Qty: 1 on 09/09/2015 Cardiac Stent [employer] Description:Device Manufactu rer - [employer]. Device Status Text - [id number]. Premier 3.0 X 28 - Aguilar [id number] Implanted:Qty: 1 on 09/09/2015 Cardiac Stent [employer] Description:Device Manufactu rer - [employer]. Device Status Text - [id number]. Premier 4.0 X 20 - Aguilar [id number] Implanted:Qty: 1 on 09/09/2015 Cardiac Stent [employer] Description:Device Manufactu rer - [employer]. Device Status Text - [id number]. Hip Implant Hip Implant Right: Hip Hip Implant- 6 Implanted:2015 (Quantity not on file) Hip Implant Right: Hip Care Teams Secondary English Teacher Relationship Specialty Start Date End Date Elsewhere, Pcp PCP - General Family Medicine 11/10/20
--- OUTSIDE RECORDS SUMMARY | 2024-02-14 10:36 | XMS_ITS | Encounter Summary ---
Author Name Unknown Organization [facility] Address [address] [place] [address] Care Team Providers Care Inflatable Buildings Laminator Name Role Phone Elsewhere, Pcp Primary Care Provider Unavailabl e Encounter Details Date Type Department Care Team (Late st Contact Info) Description 06/30/2009 Historical Ophthalmology [facility] Nancy Villanueva M.D. Social History Tobacco Use Types Packs/Day Years Used Date Smoking Tobacco: Never Assessed Sex and Gender Information Value Date Recorded Sex Assigned at Not on file Gender Identity Not on file Sexual Orientation Not on file documented as of this encounter Progress Notes * Nancy Villanueva M.D. - 06/30/2009 8:49 AM CDT Eye General CHIEF COMPLAINT Diabetic eye exam HISTORY OF PRESENT ILLNESS Non insulin dependent diabetic. Blood sugars have not been checked in the last 3 months. He notes slight changes with his vision at near, not as good as before. Distance vision he feels is good. He has floaters, has not noticed them for the last 6 months. He sees flashes of light at night when he wakes from sleeping. He also can see them in exam room today when he closes his eyes. He describes as green or could be purple or senior security engineer yellow. As soon as he goes to sleep then he does not notice them. JAL: Glucose 123, A1C 6.5% today. He saw an eye care provider (Dr.Mary Clark) at home ~ 3 -4 months ago. Had floaters that are mostly gone - only now at night sees different colors. 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 Plan: monitor periodically. 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 CDM Reports - EYEGEN Id: [id number] Status: Fnl documented in this encounter Plan of Treatment Not on file documented as of this encounter Visit Diagnoses Not on filedocumented in this encounter Care Teams Inflatable Buildings Laminator Relationship Specialty Start Date End Date Elsewhere, Pcp PCP - General Family Medicine 11/10/20 documented as of this encounter
== END 2024-02-14 10:29 | disposition home or self-care (01) ==
LOC: FBOREF 10:29
PROVIDERS: PCP Family Medicine; Visit Provider Family Medicine
DX: I10 Essential (primary) hypertension (principal); E78.2 Mixed hyperlipidemia; Z12.5 Encounter for screening for malignant neoplasm of prostate
CPT/HCPCS: 80048; 80061; 84460; 85025; G0103

== ENCOUNTER 2024-06-11 13:12 | Outpatient (CLI) | payer OTHER, SELFPAY ==
--- OUTSIDE RECORDS SUMMARY | 2024-06-11 13:18 | XMS_ITS | Encounter Summary ---
Author Organization [facility] Address [address] [place] [address] Care Team Providers Care Deburring And Tooling Machine Operator Name Role Phone Elsewhere, Pcp Primary Care [...] as green or could be purple or oreman yellow. As soon as he goes to sleep then he does not notice them. JAL: Glucose 123, A1C 6.5% today. He saw an eye care provider (Dr.Mary Clark) at home ~ 3 -4 months ago. Had floaters that are mostly gone - only now at night sees different colors. IMPRESSION / REPORT / PLAN Management requested by: Dimitris Erazo [id number] #1 Diabetes mellitus, Type 2, no eye complications. Plan: monitor periodically. 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 CDM Reports - EYEGEN Id: [id number] Status: Fnl documented in this encounter Plan of Treatment Not on file documented as of this encounter Visit Diagnoses Not on filedocumented in this encounter Care Teams Deburring And Tooling Machine Operator Relationship Specialty Start Date End Date Elsewhere, Pcp PCP - General Family Medicine 11/10/20 documented as of this encounter
--- OUTSIDE RECORDS SUMMARY | 2024-06-11 13:18 | XMS_ITS ---
Author Organization [facility] Address [address] [place] [address] Care Team Providers Care Back End Developer Name Role Phone Unavailable Unavailable Unavailable Surgery Details Not on file Complications Check Surgery Details section. Procedure Estimated Blood Loss Check Surgery Details section. Procedure Findings Check Surgery Details section. Procedure Specimens Taken Check Surgery Details section.
--- OUTSIDE RECORDS SUMMARY | 2024-06-11 13:18 | XMS_ITS | Clinical Summary ---
Author Organization [facility] Address [address] [place] [address] Care Team Providers Care Primer Powder Blender Wet Name Role Phone Elsewhere, Pcp Primary Care Provider Unavailabl e Source Comments Patient records contain information from all sites at [facility]. For routine questions regarding patient records, call [phone] during business hours, M-F 8:00 AM - 5:00 PM Central Time. Record requests for emergency care only can be directed to [phone] at any time.[facility] Allergies Active Allergy Reactions Criticality Noted Date Comments Gabapentin Other (see comments) 03/15/2011 Sore throat Lisinopril Other (see comments) 06/13/2014 Leg cramps Rosuvastatin Myalgia Low 02/26/2020 Medications Medication Sig Dispensed Refills Start Date End Date Status acetaminophen (for_TYLENOL) 500 mg tablet Take 1 tablet by mouth every morning. 03/04/2011 Active amoxicillin (for_AMOXIL) 500 mg capsule Take by mouth See Admin Instructions. 11/29/2016 Active ASPIRIN ORAL Take 1 tablet by mouth every morning. 11/24/2015 Active LANOLIN/MINERAL OIL/PETROLATUM (EYE LUBRICANT OPHT) Administer 1 drop into both eyes every 4 (four) hours as needed. 09/18/2015 Active metoprolol succinate (TOPROL-XL) 25 mg [...] different from the original. 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 Diabetes Mellitus Type 2 With Diabetic Neuropath y 03/29/2016 Overview (03/29/2017): DM2 Neuropathy Apnea Sleep Obstructive 03/29/2016 Overview (05/18/2018): CPAP 9 cm water pressure. AHI: 49.6. 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 Central canal stenosis. Foraminal narrowing. Radiculopathy Lumbar 03/20/2014 Pain Limb Generalized 06/12/2013 Pain Low Back Unspecified 06/12/2013 Keratosis Actinic 02/07/2012 Bradycardia Sinus 03/31/2011 Overview (2018): Alopecia Areata 03/31/2011 Pain Back 03/31/2011 Lichen Planus 03/31/2011 Overview (05/18/2018): Benign chronic dermatitis. Polyp Colon 03/31/2011 Overview (05/18/2018): Small polyp with no hyperplasia or dysplasia. Peripheral Vascular Disease 03/20/2011 Overview (05/18/2018): Peripheral Vascular Disease Lupus Erythematosus 03/20/2011 Overview (05/18/2018): Biopsy of skin from right mastiod showed lupus eryhtematosus. Done at [facility]. Diverticulosis Colon 03/20/2011 Overview (05/18/2018): Per CTA of Abdomen done at [facility]. Renal Cyst Disease 03/20/2011 Overview (05/18/2018): Per CTA of Abdomen done at [facility]. Sprain Rotator Cuff Initial 03/20/2011 Overview (05/18/2018): High grade supraspinatous and infraspinatous. MRI done at [facility]. 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 Abuse Tobacco Smoking 05/14/2008 Rotator Cuff Disorder 05/14/2008 Resolved Problems Problem Noted Date Diagnosed Date Resolved Date Spasm Muscle 03/17/2017 2018 Embolism Thrombosis Lower Extremity Artery 07/29/2016 2018 Overview (03/29/2017): Arterial Embolism, Right foot Hx Immunizations Name Administration Dates Next Due Influenza Split 08/21/2015,09/07/2007 Influenza, Seasonal, Injectable 10/12/2012,09/10 Influenza, Unspecified 07/29/2016,2014,10/29/2014,2011,07/22/2011,09/07/2007 PCV13 03/03/2015 PPSV23 06/08/2012,12/12/2007 Td (Adult), adsorbed 09/10/2003 Td, (Adult) [...] Used Date Smoking Tobacco: Every Day Cigarettes Smokeless Tobacco: Never Tobacco Cessation:Ready to Q [...] 01/14/2021 01/15/2020, 03/08/2019, 03/08/2019, Additional history exists Urine Albumin 07/25/2021 07/25/2020, 07/10, 08/03/2018, Additional history exists COVID-19 Vaccine (5 - 2022-2 4 season) 2023 05/24/2022, 08/06/2021, 01/06/2021, Additional history exists Depression Screening (Annual PHQ-2) 11/07/2023 Fall Risk Screen (Annual) 11/07/2023 Hemoglobin A1C 11/27/2023 2023, 10/07, 07/15/2020, Additional history exists DTaP,Tdap,and Td Vaccines (2 - Td or Tdap) 06/13/2024 06/13/2014, 09/10/2003, 09/10/2003 Influenza Vaccine (#1) 2024 , 08/05/2021, 07/30/2020, Additional history exists Creatinine Level (Kidney Fun ction Test) 09/27/2024 [...] FIT Discontinued Medical Devices Implanted Type Area Pharmacy Coordinator Device Identifier Shelf Expiration Date Model / Serial / Lot Premier 3.0 X 12 - Aguilar [id number] Implanted:Qty: 1 on 09/09/2015 Cardiac Stent [employer] Description:Device Manufactu rer - [employer]. Device Status Text - [id number]. Premier 3.0 X 28 - Aguilar [id number] Implanted:Qty: 1 on 09/09/2015 Cardiac Stent [employer] Description:Device Manufactu rer - [employer]. Device Status Text - [id number]. Premier 4.0 X 20 - Aguilar [id number] Implanted:Qty: 1 on 09/09/2015 Cardiac Stent [employer] Description:Device Manufactu rer - [employer]. Device Status Text - [id number]. Hip Implant Hip Implant Right: Hip Hip Implant- 6 Implanted:2015 (Quantity not on file) Hip Implant Right: Hip Procedures Procedure Name Priority Date/Time Associated Diagnosis Comments BASIC METABOLIC PANEL, S/P Routine 09/27/2023 2:16 PM LOAD OUT PERSON Atherosclerotic Heart Disease Of [place] Coronary Artery Without Angina Pectoris Peripheral Vascular Disease (HCC) Bicuspid Aortic Valve (HCC) HEMOGLOBIN A1C, B Routine 10/24/2020 9:0 3 AM LOAD OUT PERSON Diabetes Mellitus Type 2 With Diabetic Neuropathy (HCC) ALBUMIN, RANDOM, U Routine 07/25/2020 12 :28 PM CDT Diabetes Mellitus Type 2 With Diabetic Neuropathy (HCC) HCV AB SCRN W/REFLEX TO HCV PCR, S Routine 03/15/2017 8:25 AM CDT US AORTA Routine 06/01/2012 7:18 AM CDT from Last 3 Months or Most Recently Relevant to Health Maintenance Results * (ABNORMAL) Basic Metabolic Panel (09/27/2023 2:16 PM LOAD OUT PERSON) Potassium, P 5.0 3.6 - 5.2 mmol/L 09/27/2023 2:58 PM LOAD OUT PERSON NPRG Sodium, P 140 135 - 145 mmol/L 09/27/2023 2:58 PM LOAD OUT PERSON NPRG Chloride, P 104 98 - 107 mmol/L 09/27/2023 2:58 PM LOAD OUT PERSON NPRG Bicarbonate, P 23 22 - 29 mmol/L 09/27/2023 2:59 PM LOAD OUT PERSON NPRG Anion Gap, P 13 7 - 15 09/27/2023 2:58 PM LOAD OUT PERSON NPRG BUN (Blood Urea Nitrogen), P 26(H) 8 - 24 mg/dL 09/27/2023 2:59 PM LOAD OUT PERSON NPRG Creatinine 1.57(H) 0.74 - 1.35 mg/dL 09/27/2023 2:59 PM LOAD OUT PERSON NPRG Estimated GFR (eGFR) 45(L) >=60 mL/min/BSA 09/27/2023 2:59 PM LOAD OUT PERSON NPRG Comment: Estimated GFR calculated using the 2020 CKD_EPI creatinine equation. Calcium, Total, P 9.4 8.8 - 10.2 mg/dL 09/27/2023 2:59 PM LOAD OUT PERSON NPRG Glucose, P 92 70 - 140 mg/dL 09/27/2023 2:59 PM LOAD OUT PERSON NPRG Blood (Blood, Venous) 09/27/2023 2:16 PM LOAD OUT PERSON 09/27/2023 2:26 PM LOAD OUT PERSON Len Cardoza M.D. LAB BLOOD ADD-ON Performing Organization Address City/[facility]/ZIP Co de Phone Number [facility] [address] [place] [address], [place] NPRG [facility] [address] [place] [address] * (ABNORMAL) Hemoglobin A1c (10/24/2020 9:03 AM LOAD OUT PERSON) Hemoglobin A1c, B 6.0(H) 4.2 - 5.6 % 10/24/2020 11:30 AM LOAD OUT PERSON OWAT Comment: Hemoglobin A1c values of 5.7-6.4 percent indicate an increased risk for developing diabetes mellitus. In diabetic patients, HbA1c goals should be discussed with healthcare provider. Blood (Blood, Venous) 10/24/2020 9:03 AM LOAD OUT PERSON 10/24/2020 10:40 AM LOAD OUT PERSON Jordan Wyman M.D. LAB BLO OD ADD-ON [facility] [address] [place] [address], [place] OWAT [facility] [place] [address] [place] [address] * (ABNORMAL) Albumin, Random, Urine (07/25/2020 12:28 PM CDT) Microalbumin 31.0 mg/L 07/25/2020 4:11 PM CDT OWAT Creatinine 78 mg/dL 07/25/2020 4:11 PM CDT OWAT Albumin/Creatinin e Ratio 40(H) <17 mg/g 07/25/2020 4:11 PM CDT OWAT Urine (Urine, Clean Catch) 07/25/2020 12:28 PM CDT 07/25/2020 3:30 PM CDT Jordan Wyman M.D. LAB URI NE ORDERABLES Performing Organization Address City/[facility] Co de Phone Number [facility] [address] [place] [address], [place] OWAT [facility] [place] [address] [place] [address] * HCV Ab w/Reflex to HCV PCR, S (medicare) (03/15/2017 8:25 AM CDT) HXHCV Ab [facility] Negative Negative POWERCHART Comment: Ddesan-oe-kepvok ratio is <1.00. Test Performed by: [place] [address] Blood 03/15/2017 8:25 AM CDT Starr Santos M.D. LAB MICROBIOLOGY - B LOOD ORDERABLES Performing Organization Address [facility] de Phone Number POWERCHART * US Aorta (06/01/2012 7:18 AM CDT) Anatomical Region Laterality Modality Abdomen, Pelvis N/A Ultrasound 06/01/2012 7:18 AM CDT Addenda Addendum by ProviderBrent M.D. on 06/01/2012 7:18 AM CDT RAD^^^OW US AAA Screening Welcome Medicare 06/01/2012 07:18:00 Addendum by ProviderBrent M.D. on 06/01/2012 7:18 AM CDT RAD^^^MA US AAA Screening Welcome Medicare 06/01/2012 07:18:00 Impressions 06/01/2012 9:50 AM CDT Atherosclerotic changes of the abdominal aorta without aneurysm. Narrative 06/01/2012 9:50 AM CDT Sonographic evaluation of the abdominal aorta performed. Comparison: No prior. FINDINGS: The abdominal aorta is normal caliber with measurements as follows: Proximal: ?2.5 cm AP by 2.5 cm transverse. Mid: ? 2.1 cm AP by 2.1 cm cm transverse. Distal: ? 2.2 cm AP by 2.2 cm transverse The right and left common iliac vessels are ectatic measuring 1.6 cm on the right and 1.3 cm on the left. Diffuse luminal irregularity with regions of calcified and noncalcified atherosclerotic plaque involving the aorta and iliac vessels. Normal aortic waveform with peak systolic velocity 89 cm/s. Procedure Note Raj Mccurdy M.D. / Brent Neumann M.D. - 03/29/2017 Sonographic evaluation of the abdominal aorta performed. Comparison: No prior. FINDINGS: The abdominal aorta is normal caliber with measurements as follows: Proximal: 2.5 cm AP by 2.5 cm transverse. Mid: 2.1 cm AP by 2.1 cm cm transverse. Distal: 2.2 cm AP by 2.2 cm transverse The right and left common iliac vessels are ectatic measuring 1.6 cm on the right and 1.3 cm on the left. Diffuse luminal irregularity with regions of calcified and noncalcified atherosclerotic plaque involving the aorta and iliac vessels. Normal aortic waveform with peak systolic velocity 89 cm/s. IMPRESSION: Atherosclerotic changes of the abdominal aorta without aneurysm. Irving Sawyer Jr., RCharmaineD.M.S. IMG US PROCEDURES from Last 3 Months or Most Recently Relevant to Health Maintenance Care Teams Primer Powder Blender Wet Relationship Specialty Start Date End Date Elsewhere, Pcp PCP - General Family Medicine 11/10/20
--- OUTSIDE RECORDS SUMMARY | 2024-06-11 13:18 | XMS_ITS | Referral Summary ---
Author Organization [facility] Address [address] [place] [address] Care Team Providers Care Linoleum Layer Helper Name Role Phone Elsewhere, Pcp Primary Care Provider Unavailabl e Source Comments Patient records contain information from all sites at [facility]. For routine questions regarding patient records, call [phone] during business hours, M-F 8:00 AM - 5:00 PM Central Time. Record requests for emergency care only can be directed to [phone] at any time.[facility] Allergies Active Allergy Reactions Criticality Noted Date [...] F on file for: Qiana Cell #: [phone] Trinh pedersen goes to [place] Problem Noted Date Diagnosed Date Hyperlipidemia 2018 [...] Risk Medication 03/29/2016 Bicuspid Aortic Valve 10/15/2015 [facility] (Current) Anticoagulant Treatment 08/08 Primary Osteoarthritis Cervical [...] right mastiod showed lupus eryhtematosus. Done at [facility]. Diverticulosis Colon 03/20/2011 Overview (05/18/2018): Per CTA of Abdomen done at [facility]. Renal Cyst Disease 03/20/2011 Overview (05/18/2018): Per CTA of Abdomen done at [facility]. Sprain Rotator Cuff Initial 03/20/2011 Overview (05/18/2018): High grade supraspinatous and infraspinatous. MRI done at [facility]. 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 Device Status Text - [id number]. Premier 3.0 X 28 - Aguilar [id number] Implanted:Qty: 1 on 09/09/2015 Cardiac Stent [employer] Description:Device Manufactu rer - [employer]. Device Status Text - [id number]. Premier 4.0 X 20 - Aguilar [id number] Implanted:Qty: 1 on 09/09/2015 Cardiac Stent [employer] Description:Device Manufactu rer - [employer]. Device Status Text - [id number]. Hip Implant Hip Implant Right: Hip Hip Implant- 6 Implanted:2015 (Quantity not on file) Hip Implant Right: Hip Procedures Procedure Name Priority Date/Time Associated Diagnosis Comments BASIC METABOLIC PANEL, S/P Routine 09/27/2023 2:16 PM LUMBER STACKER OPERATOR Atherosclerotic Heart Disease Of [place] Coronary Artery Without Angina Pectoris Peripheral Vascular Disease (HCC) Bicuspid Aortic Valve (HCC) HEMOGLOBIN A1C, B Routine 10/24/2020 9:0 3 AM LUMBER STACKER OPERATOR Diabetes Mellitus Type 2 With Diabetic Neuropathy [...] (ABNORMAL) Basic Metabolic Panel (09/27/2023 2:16 PM LUMBER STACKER OPERATOR) Potassium, P 5.0 3.6 - 5.2 mmol/L 09/27/2023 2:58 PM LUMBER STACKER OPERATOR NPRG Sodium, P 140 135 - 145 mmol/L 09/27/2023 2:58 PM LUMBER STACKER OPERATOR NPRG Chloride, P 104 98 - 107 mmol/L 09/27/2023 2:58 PM LUMBER STACKER OPERATOR NPRG Bicarbonate, P 23 22 - 29 mmol/L 09/27/2023 2:59 PM LUMBER STACKER OPERATOR NPRG Anion Gap, P 13 7 - 15 09/27/2023 2:58 PM LUMBER STACKER OPERATOR NPRG BUN (Blood Urea Nitrogen), P 26(H) 8 - 24 mg/dL 09/27/2023 2:59 PM LUMBER STACKER OPERATOR NPRG Creatinine 1.57(H) 0.74 - 1.35 mg/dL 09/27/2023 2:59 PM LUMBER STACKER OPERATOR NPRG Estimated GFR (eGFR) 45(L) >=60 mL/min/BSA 09/27/2023 2:59 PM LUMBER STACKER OPERATOR NPRG Comment: Estimated GFR calculated using the 2020 CKD_EPI creatinine equation. Calcium, Total, P 9.4 8.8 - 10.2 mg/dL 09/27/2023 2:59 PM LUMBER STACKER OPERATOR NPRG Glucose, P 92 70 - 140 mg/dL 09/27/2023 2:59 PM LUMBER STACKER OPERATOR NPRG Blood (Blood, Venous) 09/27/2023 2:16 PM LUMBER STACKER OPERATOR 09/27/2023 2:26 PM LUMBER STACKER OPERATOR Len Cardoza M.D. LAB BLOOD ADD-ON [facility] [address] [place] [address], [facility] NPRG [facility] [address] [place] [address] * (ABNORMAL) Hemoglobin A1c (10/24/2020 9:03 AM LUMBER STACKER OPERATOR) Hemoglobin A1c, B 6.0(H) 4.2 - 5.6 % 10/24/2020 11:30 AM LUMBER STACKER OPERATOR OWAT Comment: Hemoglobin A1c values of 5.7-6.4 percent indicate an increased risk for developing diabetes mellitus. In diabetic patients, HbA1c goals should be discussed with healthcare provider. Blood (Blood, Venous) 10/24/2020 9:03 AM LUMBER STACKER OPERATOR 10/24/2020 10:40 AM LUMBER STACKER OPERATOR Jordan Wyman M.D. LAB BLO OD ADD-ON Performing Organization Address City/[facility] Co de Phone Number [facility] [address] [place] [address], [facility] OWAT [facility] [place] [address] [place] [address] * (ABNORMAL) Albumin, Random, Urine (07/25/2020 12:28 PM CDT) Microalbumin 31.0 mg/L 07/25/2020 4:11 PM CDT OWAT Creatinine 78 mg/dL 07/25/2020 4:11 PM CDT OWAT Albumin/Creatinin e Ratio 40(H) <17 mg/g 07/25/2020 4:11 PM CDT OWAT Urine (Urine, Clean Catch) 07/25/2020 12:28 PM CDT 07/25/2020 3:30 PM CDT Jordan Wyman M.D. LAB URI NE ORDERABLES Performing Organization Address City/[facility]/ZIP Co de Phone Number [facility] [address], [place] [address], [facility] OWAT [facility] [place] [address] [place] [address] * HCV Ab w/Reflex to HCV PCR, S (medicare) (03/15/2017 8:25 AM CDT) HXHCV Ab [facility] Negative Negative POWERCHART Comment: Lsbjsj-am-kogrwc ratio is <1.00. Test Performed by: [facility] - [address] [address] Blood 03/15/2017 8:25 AM CDT Starr Santos M.D. LAB MICROBIOLOGY - B LOOD ORDERABLES POWERCHART * US Aorta (06/01/2012 7:18 AM CDT) Anatomical Region Laterality Modality Abdomen, Pelvis N/A Ultrasound 06/01/2012 7:18 AM CDT Addenda Addendum by Brent Neumann M.D. on 06/01/2012 7:18 AM CDT RAD^^^OW US AAA Screening Welcome Medicare 06/01/2012 07:18:00 Addendum by Brent Neumann M.D. on 06/01/2012 7:18 AM CDT RAD^^^MA [...] cm/s. Procedure Note Raj Mccurdy M.D. / ProviderBrent M.D. - 03/29/2017 Sonographic evaluation of the [...] the abdominal aorta without aneurysm. Irving Sawyer Jr. RKyM.S. IMG US PROCEDURES from Last 3 Months or Most Recently Relevant to Health Maintenance Care Teams Linoleum Layer Helper Relationship Specialty Start Date End Date Elsewhere, Pcp PCP - General Family Medicine 11/10/20
--- OUTSIDE RECORDS SUMMARY | 2024-06-11 13:18 | XMS_ITS | Encounter Summary ---
Author Organization [facility] Address [address] [place] [address] Care Team Providers Care Mirror Installer Name Role Phone Elsewhere, Pcp Primary Care Provider Unavailabl e Encounter Details Date Type Department Care Team (Late st Contact Info) Description 05/15/2008 Historical Ophthalmology [facility] aNncy Villanueva M.D. Social History Tobacco Use Types [...] floaters. He was seen by his local Cross Enterprise Integrator for this and was told these were floaters. He denies changes with his vision. No flashes of light. JAL: DM dx in 11/14. He sees Dr. Horton in [place] who found a lot of scarring - no outside eye notes available to me. IMPRESSION / REPORT / PLAN Consult requested by: Nestor Erazo [id number] #1 Diabetes mellitus, no eye complications. Plan: monitor periodically. He is seen regularly at home. #2 Hypertension, with ocular findings. DIAGNOSIS #1 Diabetes mellitus, no eye complications. #2 Hypertension, with ocular findings. [facility] Reports - EYEGEN Id: [id number] Status: Fnl documented in this encounter Plan of Treatment Not on file documented as of this encounter Visit Diagnoses Not on filedocumented in this encounter Care Teams Mirror Installer Relationship Specialty Start Date End Date Elsewhere, Pcp PCP - General Family Medicine 11/10/20 documented as of this encounter
== END 2024-06-11 13:13 | disposition home or self-care (01) ==
PROVIDERS: PCP Family Medicine; Visit Provider Family Medicine
DX: E78.2 Mixed hyperlipidemia (principal); I10 Essential (primary) hypertension; E11.40 Type 2 diabetes mellitus with diabetic neuropathy, unspecified; N39.0 Urinary tract infection, site not specified; B96.20 Unspecified Escherichia coli [E. coli] as the cause of diseases classified elsewhere
CPT/HCPCS: 80048; 80061; 84460; 87086; 87186

== ENCOUNTER 2024-07-01 19:33 | Emergency (ER) | payer OTHER, SELFPAY ==
[2024-07-01] VITALS (12 sets, daily range): BP systolic 100–116; BP diastolic 55–64; PULSE 55–69; RESP 16–20; TEMP 37.4; O2SAT 90–96; BMI 26.2
--- OUTSIDE RECORDS SUMMARY | 2024-07-01 19:35 | XMS_ITS ---
Author Organization [facility] Address [address] [place] [address] Care Team Providers Care Gravel Truck Driver Name Role Phone Unavailable Unavailable Unavailable Surgery Details Not on file Complications Check Surgery Details section. Procedure Estimated Blood Loss Check Surgery Details section. Procedure Findings Check Surgery Details section. Procedure Specimens Taken Check Surgery Details section.
--- OUTSIDE RECORDS SUMMARY | 2024-07-01 19:35 | XMS_ITS | Encounter Summary ---
Author Organization [facility] Address [address] [place] [address] Care Team Providers Care Radio Engineering Teacher Name Role Phone Elsewhere, Pcp Primary [...] as green or could be purple or oil field technician yellow. As soon as he goes to sleep then he does not notice them. JAL: Glucose 123, A1C 6.5% today. He saw an eye care provider (Dr.Mary Clark) at home ~ 3 -4 months ago. Had floaters that are mostly gone - only now at night sees different colors. IMPRESSION / REPORT / PLAN Management requested by: Dimitris Erazo [id number] #1 Diabetes mellitus, Type 2, no eye complications. Plan: monitor periodically. 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 [facility] Reports - EYEGEN Id: [id number] Status: Fnl documented in this encounter Plan of Treatment Not on file documented as of this encounter Visit Diagnoses Not on filedocumented in this encounter Care Teams Radio Engineering Teacher Relationship Specialty Start Date End Date Elsewhere, Pcp PCP - General Family Medicine 11/10/20 documented as of this encounter
--- OUTSIDE RECORDS SUMMARY | 2024-07-01 19:35 | XMS_ITS | Clinical Summary ---
Author Organization [facility] Address [address] [place] [address] Care Team Providers Care Demolition Worker Name Role Phone Elsewhere, Pcp Primary Care Provider Unavailabl e Source Comments Patient records contain information from all sites at [facility]. For routine questions regarding patient records, call [phone] during business hours, M-F 8:00 AM - 5:00 PM Central Time. Record requests for emergency care only can be directed to [phone] at any time.[facility] Allergies Active Allergy Reactions Criticality Noted Date [...] Work: no JUAN F on file for: Qaina Cell #: [phone] Trinh pedersen goes to [place] Problem Noted Date Diagnosed Date Hyperlipidemia 2018 [...] Risk Medication 03/29/2016 Bicuspid Aortic Valve 10/15/2015 [facility] (Current) Anticoagulant Treatment 08/08 Primary Osteoarthritis Cervical [...] right mastiod showed lupus eryhtematosus. Done at [facility]. Diverticulosis Colon 03/20/2011 Overview (05/18/2018): Per CTA of Abdomen done at [facility]. Renal Cyst Disease 03/20/2011 Overview (05/18/2018): Per CTA of Abdomen done at [facility]. Sprain Rotator Cuff Initial 03/20/2011 Overview (05/18/2018): High grade supraspinatous and infraspinatous. MRI done at [facility]. 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 Device Status Text - [id number]. Premier 3.0 X 28 - Aguilar [id number] Implanted:Qty: 1 on 09/09/2015 Cardiac Stent [employer] Description:Device Manufactu rer - [employer]. Device Status Text - [id number]. Premier 4.0 X 20 - Aguilar [id number] Implanted:Qty: 1 on 09/09/2015 Cardiac Stent [employer] Description:Device Manufactu rer - [employer]. Device Status Text - [id number]. Hip Implant Hip Implant Right: Hip Hip Implant- 6 Implanted:2015 (Quantity not on file) Hip Implant Right: Hip Procedures Procedure Name Priority Date/Time Associated Diagnosis Comments BASIC METABOLIC PANEL, S/P Routine 09/27/2023 2:16 PM SUPERVISOR INSPECTION ROOM Atherosclerotic Heart Disease Of [place] Coronary Artery Without Angina Pectoris Peripheral Vascular Disease (HCC) Bicuspid Aortic Valve (HCC) HEMOGLOBIN A1C, B Routine 10/24/2020 9:0 3 AM SUPERVISOR INSPECTION ROOM Diabetes Mellitus Type 2 With Diabetic Neuropathy [...] (ABNORMAL) Basic Metabolic Panel (09/27/2023 2:16 PM SUPERVISOR INSPECTION ROOM) Potassium, P 5.0 3.6 - 5.2 mmol/L 09/27/2023 2:58 PM SUPERVISOR INSPECTION ROOM NPRG Sodium, P 140 135 - 145 mmol/L 09/27/2023 2:58 PM SUPERVISOR INSPECTION ROOM NPRG Chloride, P 104 98 - 107 mmol/L 09/27/2023 2:58 PM SUPERVISOR INSPECTION ROOM NPRG Bicarbonate, P 23 22 - 29 mmol/L 09/27/2023 2:59 PM SUPERVISOR INSPECTION ROOM NPRG Anion Gap, P 13 7 - 15 09/27/2023 2:58 PM SUPERVISOR INSPECTION ROOM NPRG BUN (Blood Urea Nitrogen), P 26(H) 8 - 24 mg/dL 09/27/2023 2:59 PM SUPERVISOR INSPECTION ROOM NPRG Creatinine 1.57(H) 0.74 - 1.35 mg/dL 09/27/2023 2:59 PM SUPERVISOR INSPECTION ROOM NPRG Estimated GFR (eGFR) 45(L) >=60 mL/min/BSA 09/27/2023 2:59 PM SUPERVISOR INSPECTION ROOM NPRG Comment: Estimated GFR calculated using the 2020 CKD_EPI creatinine equation. Calcium, Total, P 9.4 8.8 - 10.2 mg/dL 09/27/2023 2:59 PM SUPERVISOR INSPECTION ROOM NPRG Glucose, P 92 70 - 140 mg/dL 09/27/2023 2:59 PM SUPERVISOR INSPECTION ROOM NPRG Blood (Blood, Venous) 09/27/2023 2:16 PM SUPERVISOR INSPECTION ROOM 09/27/2023 2:26 PM SUPERVISOR INSPECTION ROOM Len Cardoza M.D. LAB BLOOD ADD-ON Performing Organization Address City/[facility]/ZIP Co de Phone Number [facility] [address] [place] [address], [place] NPRG [facility] [address] [place] [address] * (ABNORMAL) Hemoglobin A1c (10/24/2020 9:03 AM SUPERVISOR INSPECTION ROOM) Hemoglobin A1c, B 6.0(H) 4.2 - 5.6 % 10/24/2020 11:30 AM SUPERVISOR INSPECTION ROOM OWAT Comment: Hemoglobin A1c values of 5.7-6.4 percent indicate an increased risk for developing diabetes mellitus. In diabetic patients, HbA1c goals should be discussed with healthcare provider. Blood (Blood, Venous) 10/24/2020 9:03 AM SUPERVISOR INSPECTION ROOM 10/24/2020 10:40 AM SUPERVISOR INSPECTION ROOM Jordan Wyman M.D. LAB BLO OD ADD-ON [facility] [address] [place] [address], [place] OWAT [facility] [place] [address] [place] [address] * (ABNORMAL) Albumin, Random, Urine (07/25/2020 12:28 PM CDT) Microalbumin 31.0 mg/L 07/25/2020 4:11 PM CDT OWAT Creatinine 78 mg/dL 07/25/2020 4:11 PM CDT OWAT Albumin/Creatinin e Ratio 40(H) <17 mg/g 07/25/2020 4:11 PM CDT OWAT Urine (Urine, Clean Catch) 07/25/2020 12:28 PM CDT 07/25/2020 3:30 PM CDT Jordan Wyman M.D. LAB URI NE ORDERABLES Performing Organization Address City/[facility] Co de Phone Number [facility] [address] [place] [address], [place] OWAT [facility] [place] [address] [place] [address] * HCV Ab w/Reflex to HCV PCR, S (medicare) (03/15/2017 8:25 AM CDT) HXHCV Ab [facility] Negative Negative POWERCHART Comment: Tcnefk-un-vpijlj ratio is <1.00. Test Performed by: [place] [address] Blood 03/15/2017 8:25 AM CDT Starr Santos M.D. LAB MICROBIOLOGY - B LOOD ORDERABLES Performing Organization Address [facility] de Phone Number POWERCHART * US Aorta [...] Recently Relevant to Health Maintenance Care Teams Demolition Worker Relationship Specialty Start Date End Date Elsewhere, Pcp PCP - General Family Medicine 11/10/20
--- OUTSIDE RECORDS SUMMARY | 2024-07-01 19:35 | XMS_ITS | Referral Summary ---
Author Organization [facility] Address [address] [place] [address] Care Team Providers Care Drywaller Name Role Phone Elsewhere, Pcp Primary Care Provider Unavailabl e Source Comments Patient records contain information from all sites at [facility]. For routine questions regarding patient records, call [phone] during business hours, M-F 8:00 AM - 5:00 PM Central Time. Record requests for emergency care only can be directed to [phone] at any time.[facility] Allergies Active Allergy Reactions Criticality Noted Date [...] F on file for: Qiana Cell #: [phone] Trinh pedersen goes to [place] Problem Noted Date Diagnosed Date Hyperlipidemia 2018 [...] right mastiod showed lupus eryhtematosus. Done at [facility]. Diverticulosis Colon 03/20/2011 Overview (05/18/2018): Per CTA of Abdomen done at [facility]. Renal Cyst Disease 03/20/2011 Overview (05/18/2018): Per CTA of Abdomen done at [facility]. Sprain Rotator Cuff Initial 03/20/2011 Overview (05/18/2018): High grade supraspinatous and infraspinatous. MRI done at [facility]. 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 Device Status Text - [id number]. Premier 3.0 X 28 - Aguilar [id number] Implanted:Qty: 1 on 09/09/2015 Cardiac Stent [employer] Description:Device Manufactu rer - [employer]. Device Status Text - [id number]. Premier 4.0 X 20 - Aguilar [id number] Implanted:Qty: 1 on 09/09/2015 Cardiac Stent [employer] Description:Device Manufactu rer - [employer]. Device Status Text - [id number]. Hip Implant Hip Implant Right: Hip Hip Implant- 6 Implanted:2015 (Quantity not on file) Hip Implant Right: Hip Procedures Procedure Name Priority Date/Time Associated Diagnosis Comments BASIC METABOLIC PANEL, S/P Routine 09/27/2023 2:16 PM SILICA FILTER OPERATOR Atherosclerotic Heart Disease Of [place] Coronary Artery Without Angina Pectoris Peripheral Vascular Disease (HCC) Bicuspid Aortic Valve (HCC) HEMOGLOBIN A1C, B Routine 10/24/2020 9:0 3 AM SILICA FILTER OPERATOR Diabetes Mellitus Type 2 With Diabetic [...] (ABNORMAL) Basic Metabolic Panel (09/27/2023 2:16 PM SILICA FILTER OPERATOR) Potassium, P 5.0 3.6 - 5.2 mmol/L 09/27/2023 2:58 PM SILICA FILTER OPERATOR NPRG Sodium, P 140 135 - 145 mmol/L 09/27/2023 2:58 PM SILICA FILTER OPERATOR NPRG Chloride, P 104 98 - 107 mmol/L 09/27/2023 2:58 PM SILICA FILTER OPERATOR NPRG Bicarbonate, P 23 22 - 29 mmol/L 09/27/2023 2:59 PM SILICA FILTER OPERATOR NPRG Anion Gap, P 13 7 - 15 09/27/2023 2:58 PM SILICA FILTER OPERATOR NPRG BUN (Blood Urea Nitrogen), P 26(H) 8 - 24 mg/dL 09/27/2023 2:59 PM SILICA FILTER OPERATOR NPRG Creatinine 1.57(H) 0.74 - 1.35 mg/dL 09/27/2023 2:59 PM SILICA FILTER OPERATOR NPRG Estimated GFR (eGFR) 45(L) >=60 mL/min/BSA 09/27/2023 2:59 PM SILICA FILTER OPERATOR NPRG Comment: Estimated GFR calculated using the 2020 CKD_EPI creatinine equation. Calcium, Total, P 9.4 8.8 - 10.2 mg/dL 09/27/2023 2:59 PM SILICA FILTER OPERATOR NPRG Glucose, P 92 70 - 140 mg/dL 09/27/2023 2:59 PM SILICA FILTER OPERATOR NPRG Blood (Blood, Venous) 09/27/2023 2:16 PM SILICA FILTER OPERATOR 09/27/2023 2:26 PM SILICA FILTER OPERATOR Len Cardoza M.D. LAB BLOOD ADD-ON [facility] [address] [place] [address], [facility] NPRG [facility] [address] [place] [address] * (ABNORMAL) Hemoglobin A1c (10/24/2020 9:03 AM SILICA FILTER OPERATOR) Hemoglobin A1c, B 6.0(H) 4.2 - 5.6 % 10/24/2020 11:30 AM SILICA FILTER OPERATOR OWAT Comment: Hemoglobin A1c values of 5.7-6.4 percent indicate an increased risk for developing diabetes mellitus. In diabetic patients, HbA1c goals should be discussed with healthcare provider. Blood (Blood, Venous) 10/24/2020 9:03 AM SILICA FILTER OPERATOR 10/24/2020 10:40 AM SILICA FILTER OPERATOR Jordan Wyman M.D. LAB BLO OD ADD-ON Performing Organization Address City/[facility] Co de Phone Number [facility] [address] [place] [address], [facility] OWAT [facility] [place] [address] [place] [address] * (ABNORMAL) Albumin, Random, Urine (07/25/2020 12:28 PM CDT) Microalbumin 31.0 mg/L 07/25/2020 4:11 PM CDT OWAT Creatinine 78 mg/dL 07/25/2020 4:11 PM CDT OWAT Albumin/Creatinin e Ratio 40(H) <17 mg/g 07/25/2020 4:11 PM CDT OWAT Urine (Urine, Clean Catch) 07/25/2020 12:28 PM CDT 07/25/2020 3:30 PM CDT Jordan Wyman M.D. LAB URI NE ORDERABLES Performing Organization Address City/[facility]/ZIP Co de Phone Number [facility] [address], [place] [address], [facility] OWAT [facility] [place] [address] [place] [address] * HCV Ab w/Reflex to HCV PCR, S (medicare) (03/15/2017 8:25 AM CDT) HXHCV Ab [facility] Negative Negative POWERCHART Comment: Lhhifx-xt-urstfe ratio is <1.00. Test Performed by: [facility] - [address] [address] Blood 03/15/2017 8:25 AM CDT Starr Santos [...] Recently Relevant to Health Maintenance Care Teams Drywaller Relationship Specialty Start Date End Date Elsewhere, Pcp PCP - General Family Medicine 11/10/20
--- OUTSIDE RECORDS SUMMARY | 2024-07-01 19:35 | XMS_ITS | Encounter Summary ---
Author Organization [facility] Address [address] [place] [address] Care Team Providers Care Executive Vice President And Chief Operating Officer Name Role Phone Elsewhere, Pcp Primary Care [...] floaters. He was seen by his local Circus Artist for this and was told these were floaters. He denies changes with his vision. No flashes of light. JAL: DM dx in 11/14. He sees Dr. Horton in [place] who found a lot of scarring - no outside eye notes available to me. IMPRESSION / REPORT / PLAN Consult requested by: Nestor Erazo [id number] #1 Diabetes mellitus, no eye complications. Plan: monitor periodically. He is seen regularly at home. #2 Hypertension, with ocular findings. DIAGNOSIS #1 Diabetes mellitus, no eye complications. #2 Hypertension, with ocular findings. [facility] Reports - EYEGEN Id: [id number] Status: Fnl documented in this encounter Plan of Treatment Not on file documented as of this encounter Visit Diagnoses Not on filedocumented in this encounter Care Teams Executive Vice President And Chief Operating Officer Relationship Specialty Start Date End Date Elsewhere, Pcp PCP - General Family Medicine 11/10/20 documented as of this encounter
--- NOTE | 2024-07-01 19:50 | CRLHL7_ITS ---
For Patients: As a result of the Century Cures Act, medical imaging exams and procedure reports are released immediately into your electronic medical record. You may view this report before your referring provider. If you have questions, please contact your health care provider. INDICATION: Weakness. TECHNIQUE: Noncontrast CT images of the brain. Comparison CT brain 12/22/2020. FINDINGS: Xikt-gh-gvyrvgzz diffuse cerebral volume loss. No mass effect or midline shift. The rick white differentiation is maintained. No acute intracranial hemorrhage or pathologic extra-axial fluid collection. Intracranial atherosclerotic calcifications. The globes are symmetric. The calvarium is intact. Moderate left maxillary sinus mucosal thickening. Severe opacification of the right mastoid air cells and right middle ear cavity. IMPRESSION: 1. No acute intracranial hemorrhage or mass effect. 2. Severe opacification of right mastoid air cells and right middle ear cavity has worsened. Please note that all CT scans at this facility use dose modulation, iterative reconstruction, and/or weight-based dosing when appropriate to reduce radiation dose to as low as reasonably achievable. Dictated by Timo Branch MD @ 07/01/2024 8:59:35 PM (Electronically Signed)
--- NOTE | 2024-07-01 19:51 | CRLHL7_ITS ---
For Patients: As a result of the Cures Act, medical imaging exams and procedure reports are released immediately into your electronic medical record. You may view this report before your referring provider. If you have questions, please contact your health care provider. Indication: Weakness. Technique: Frontal chest radiograph. Comparison: Chest radiograph from 02/16/2021. Findings: Lungs are clear. No consolidation, effusion or pneumothorax. Cardiomediastinal silhouette is within normal limits. No significant osseous or soft tissue findings. Impression: 1. No acute cardiopulmonary process. Dictated by Alec Carrero MD @ 07/01/2024 9:05:38 PM (Electronically Signed)
--- NOTE | 2024-07-01 19:53 | ED_ITS ---
HPI - General Adult General Chief complaint: Weakness Stated complaint: Weakness Time Seen by Provider: 07/01/24 19:33 History of Present Illness HPI narrative: Patient is a 79 year white male who apparently was out on a pontoon today with friends he reports he drank about 5 beers, then they went to a winery, he was sitting by his car was unable to get up he was there with his . Patient has had cardiac stents, decreased ejection fraction, ischemic cardiomyopathy. He does smoke, does drink. He has had stents as mention multiple times. He denies chest pain, denies fever, denies chills, he reported that his legs were just weak. No focality to his complaints. No recent fever, chills, cough, abdominal pain. Reports that he feels a little bit better now but he reports he has not drank any water today, but he has drank alcohol as mention. His past medical history and chart reviewed his EKG interestingly shows normal sinus rhythm anteroseptal infarct but no change since 10/18/2022 by my read. Related Data Home Medications ?Medication ?Instructions ?Recorded ?Confirmed aspirin 81 mg tablet,delayed 81 mg PO QDAY 07/09/22 07/01/24 release nitroglycerin 0.4 mg sublingual 0.4 mg sublingual Q5M PRN 07/09/22 07/01/24 tablet (Nitrostat) ticagrelor 90 mg tablet (Brilinta) 90 mg PO BID 06/30/23 07/01/24 carvedilol 3.125 mg tablet 3.125 mg PO BID 06/11/24 07/01/24 empagliflozin 10 mg tablet 10 mg PO QDAY 06/11/24 07/01/24 (Jardiance) atorvastatin 10 mg tablet 10 mg PO QDAY 06/20/24 07/01/24 Previous Rx's ?Medication ?Instructions ?Recorded losartan 50 mg tablet 50 mg PO QDAY #90 tabs 03/16/23 omeprazole 20 mg capsule,delayed 20 mg PO DAILY #90 caps 05/07/24 release gabapentin 300 mg capsule 300 mg PO .QHS #90 caps 05/24/24 metformin 1,000 mg tablet 1,000 mg PO QDAY #90 tabs 06/21/24 Allergies Allergy/AdvReac Type Severity Reaction Status Date / Time lisinopril Allergy Unknown Unknown Verified 07/01/24 19:39 rosuvastatin Allergy Unknown Unknown Verified 07/01/24 19:39 Review of Systems Status of ROS: Reports: 6 or more systems reviewed and unremarkable except as noted in History and below [facility] Medical History Primary hypertension ?I10 - Essential (primary) hypertension (ICD-10) Mixed hyperlipidemia ?E78.2 - Mixed hyperlipidemia (ICD-10) Systolic CHF ?I50.20 - Unspecified systolic (congestive) heart failure (ICD-10) Type 2 diabetes mellitus with diabetic neuropathy ?E11.40 - Type 2 diabetes mellitus with diabetic neuropathy, unspecified (ICD-10) Tobacco abuse ?Z72.0 - Tobacco use (ICD-10) Poorly fitting dentures ?K08.89 - Other specified disorders of teeth and supporting structures (ICD- 10) ?Z97.2 - Presence of dental prosthetic device (complete) (partial) (ICD-10) Peripheral vascular disease ?I73.9 - Peripheral vascular disease, unspecified (ICD-10) Obstructive sleep apnea syndrome ?G47.33 - Obstructive sleep apnea (adult) (pediatric) (ICD-10) Hypertensive retinopathy ?H35.039 - Hypertensive retinopathy, unspecified eye (ICD-10) Hypertensive kidney disease, stage III (03/17/17) ?I12.9 - Hypertensive chronic kidney disease with stage 1 through stage 4 chronic kidney disease, or unspecified chronic kidney disease (ICD-10) ?N18.30 - Chronic kidney disease, stage 3 unspecified (ICD-10) History of squamous cell carcinoma of skin (09/16/14) ?Z85.828 - Personal history of other malignant neoplasm of skin (ICD-10) History of arterial embolism (2004) ?Z86.79 - Personal history of other diseases of the circulatory system (ICD- 10) Hearing loss ?H91.90 - Unspecified hearing loss, unspecified ear (ICD-10) Gastroesophageal reflux disease ?K21.9 - Gastro-esophageal reflux disease without esophagitis (ICD-10) Erectile dysfunction ?N52.9 - Male erectile dysfunction, unspecified (ICD-10) Discoid lupus erythematosus (1995) ?L93.0 - Discoid lupus erythematosus (ICD-10) Diabetic neuropathy ?E11.40 - Type 2 diabetes mellitus with diabetic neuropathy, unspecified (ICD-10) Chronic obstructive pulmonary disease ?J44.9 - Chronic obstructive pulmonary disease, unspecified (ICD-10) Chronic neck and back pain ?M54.2 - Cervicalgia (ICD-10) ?M54.9 - Dorsalgia, unspecified (ICD-10) ?G89.29 - Other chronic pain (ICD-10) Bicuspid aortic valve ?Q23.1 - Congenital insufficiency of aortic valve (ICD-10) Arteriosclerotic cardiovascular disease ?I25.10 - Atherosclerotic heart disease of [place] coronary artery without angina pectoris (ICD-10) Adenomatous polyp of colon ?D12.6 - Benign neoplasm of colon, unspecified (ICD-10) Surgical History History of arthroscopy of left shoulder (10/17/07) ?Z98.890 - Other specified postprocedural states (ICD-10) History of arthroscopy of right shoulder (08/20/08) ?Z98.890 - Other specified postprocedural states (ICD-10) 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 3 children. Retired. 10 cigars per day. Social EtOH. What is your current living situation?: I presently have a place to live Problems where you live: no known problems In the past 12 months, utilities in danger of being shut off: no In past 12 months, lack of transportation kept you from medical appts, meetings, work, or getting things needed for daily living: no How hard is it for you to pay for the very basics like food, housing, medical care, and heating: not very hard In the past 12 mos, have been you worried that your food would run out before you had money to buy more?: never true In the past 12 mos, the food you bought just didn't last and you didn't have money to buy more?: never true Smoking Status: Current every day smoker How often do you have a drink containing alcohol: 4 or more times a week AUDIT-C Alcohol total score: 4 Non-prescribed substance use: denies use How often does anyone, including family, friends and others, physically hurt you : never How often does anyone, including family, friends and others, insult or talk down to you: never How often does anyone, including family, friends and others, threaten you with harm: never How often does anyone, including family, friends and others, scream or curse at you: never Little interest or pleasure in doing things: not at all Feeling down, depressed, or hopeless: not at all Exam Narrative: Exam Narrative: Objective area with: Temperature 99.3? other vital signs are within normal limits He is alert and oriented to person place and time, smells of alcohol Neck is supple No facial asymmetry Heart rate and rhythm regular regular with 2/6 systolic ejection murmur Abdomen benign soft Extremities he moves all extremities has no pronator drift his upper lower extremities , good hand grasp good foot strength. Good peripheral perfusion noted. Skin warm and dry. Const: Vital Signs, click to edit/add: Vital Signs - 24 hr 07/01/24 19:36 07/01/24 19:43 07/01/24 19:45 Temperature 99.3 F Pulse Rate 69 Pulse Rate [Pulse Oximeter] 61 Respiratory Rate 20 Blood Pressure Blood Pressure [Ri ght Upper Arm] 116/64 Pulse Oximetry 93 92 92 Oxygen Delivery Me thod Room Air 07/01/24 19:50 07/01/24 20:00 07/01/24 20:02 Temperature Pulse Rate 57 L 56 L Pulse Rate [Pulse Oximeter] Respiratory Rate 16 Blood Pressure 100/57 L Blood Pressure [Ri ght Upper Arm] Pulse Oximetry 96 90 92 Oxygen Delivery Me thod 07/01/24 20:15 07/01/24 20:45 07/01/24 20:47 Temperature Pulse Rate 61 56 L 57 L Pulse Rate [Pulse Oximeter] Respiratory Rate 18 Blood Pressure 114/61 Blood Pressure [Ri ght Upper Arm] Pulse Oximetry 90 94 95 Oxygen Delivery Dc thod 07/01/24 20:58 07/01/24 21:00 07/01/24 21:02 Temperature Pulse Rate 55 L 55 L 55 L Pulse Rate [Pulse Oximeter] Respiratory Rate 16 16 Blood Pressure 106/62 114/55 L Blood Pressure [Ri ght Upper Arm] Pulse Oximetry 94 93 94 Oxygen Delivery Me thod Course Vital Signs Vital signs: Initial Vital Signs Temperature 99.3 F 07/01/24 19:36 Temperature Source Temporal Artery Scan 07/01/24 19:36 Pulse Rate 61 07/01/24 19:36 Respiratory Rate 20 07/01/24 19:36 Blood Pressure 116/64 07/01/24 19:36 Blood Pressure Mean 81 07/01/24 19:36 Blood Pressure Position Supine 07/01/24 19:36 Pulse Oximetry 93 07/01/24 19:36 Oxygen Delivery Method Room Air 07/01/24 19:36 Vital Signs Temperature 99.3 F 07/01/24 19:36 Pulse Rate 61 07/01/24 19:36 Respiratory Rate 20 07/01/24 19:36 Blood Pressure 116/64 07/01/24 19:36 Pulse Oximetry 93 07/01/24 19:36 Oxygen Delivery Method Room Air 07/01/24 19:36 Temperature 99.3 F 07/01/24 19:36 Pulse Rate 55 L 07/01/24 21:02 Respiratory Rate 16 07/01/24 21:02 Blood Pressure 114/55 L 07/01/24 21:02 Pulse Oximetry 94 07/01/24 21:02 Oxygen Delivery Method Room Air 07/01/24 19:36 Medications Administered Medications: Discontinued Medications Generic Name Dose Route Start Last Admin Trade Name Freq PRN Reason Stop Dose Admin Sodium Chloride 500 mls @ 500 mls/hr 07/01/24 19:50 07/01/24 21:51 0.9 % Sodium Chloride 500 Ml IV 07/01/24 20:49 Infused .Q1H ONE Infusion Medical Decision Making MDM Narrative Medical decision making narrative: 79-year-old white male with a history of alcohol intake today, possible dehydration possible in alcohol intoxication, history of coronary artery disease, history of generalized weakness. History of peripheral vascular disease. Given these findings I think it be reasonable and is weakness to check a head CT, check troponin, electrolytes, give some IV hydration. Check alcohol level. Keep on a monitoring specialist oximeter. Disposition pending findings and results. Addendum 9:15 p.m.: The patient's head CT shows no acute intracranial changes, he does have some significant opacification of his mastoid air cells on the right and the right middle ear cavity that were present prior. If family wishes they could see ENT regarding this. He also has elevated alcohol level of 0.14%. At this was discussed with family. His chest x-ray was unremarkable by my read His laboratory studies look reassuring, CRP less than 0.5, white count normal hemoglobin 12.9, like ER profile is largely unremarkable other than creatinine borderline at 1.6.. I think at this point given his reassuring clinical evaluation history and his rehydration, he does feel better, will do some road test for him in the ER, make sure he can walk-in as strength. If so he can be allowed to go home with family. Lab Data Labs: Lab Results 07/01/24 Range/Units 20:20 WBC 7.89 (4.50-11.00) K/uL RBC 4.07 L (4.30-5.90) m/uL Hgb 12.9 L (13.5-17.5) gm/dL Hct 39.2 (37.0-53.0) % MCV 96 (80-100) fL MCH 32 (26-34) pg MCHC 33 (32-36) gm/dL RDW Coeff of Jess 14.0 (11.5-15.5) % Plt Count 198 (140-440) K/uL Neut % (Auto) 76.4 H (42.0-72.0) % Lymph % (Auto) 12.9 L (20-44) % [place] % (Auto) 7.0 (0.0-11.0) % Eos % (Auto) 3.3 (0.0-7.0) % Baso % (Auto) 0.3 (0.0-3.0) % Neut # (Auto) 6.00 (1.7-7.0) K/uL Lymph # (Auto) 1.00 (0.90-2.90) K/uL [place] # (Auto) 0.60 (0.00-0.90) K/UL Eos # (Auto) 0.26 (0.00-0.50) K/uL Baso # (Auto) 0.02 (0.00-0.30) K/uL Abs Immat Gran (auto) 0.01 (0.00-0.30) K/uL Imm/Tot Granulo (auto) 0.1 % Sodium 132 L (135-149) mmol/L Potassium 4.0 (3.6-5.1) mmol/L Chloride 104 (96-114) mmol/L Carbon Dioxide 17 L (20-32) mmol/L Anion Gap 11 (7-15) mEq/L BUN 18 (7-30) mg/dL Creatinine 1.6 H (0.5-1.5) mg/dL Estimated Creat Clear 37.41 Estimated GFR 44 ml/min Glucose 80 (60-115) mg/dL Calcium 8.8 (8.4-10.6) mg/dL Total Bilirubin 0.5 (0.1-1.5) mg/dL Direct Bilirubin 0.3 (0.0-0.5) mg/dL AST 32 (12-35) U/L ALT 15 (4-50) U/L Alkaline Phosphatase 29 L (40-150) U/L Troponin I 0.01 (0.01-0.04) ng/mL C-Reactive Protein < 0.5 L (0.5-1.0) mg/dL NT-Pro-B Natriuret Pep 842 pg/mL Total Protein 7.3 (6.0-8.3) g/dL Albumin 4.1 (3.3-5.0) g/dL Lipase 174 (23-300) U/L Ethyl Alcohol 0.14 H (0.01-0.03) % Discharge Plan Discharge Clinical Impression: Weakness, Dehydration, Alcohol intoxication Patient Disposition: Home w/ Parent or Adult Condition: Improved Additional Instructions: Light activity, recommend being with family tonight. Avoid alcohol. Continue home meds. You have some fluid in your right mastoid air cells, that you could consult with ENT regarding if you wish. That process was there before as well. Return to ED as needed or problems or concerns. Activity Level: Light activity Discharge Diet: Regular Prescriptions: No Action Jardiance 10 mg tablet 10 mg PO QDAY carvedilol 3.125 mg tablet 3.125 mg PO BID Patient Comments: TAKE ONE TABLET BY MOUTH TWICE A DAY WITH MEALS atorvastatin 10 mg tablet 10 mg PO QDAY Brilinta 90 mg tablet 90 mg PO BID nitroglycerin [Nitrostat] 0.4 mg tablet, sublingual 0.4 mg sublingual Q5M PRN Rx Instructions: do not exceed 3 doses per episode aspirin 81 mg tablet,delayed release (DR/EC) 81 mg PO QDAY losartan 50 mg tablet 50 mg PO QDAY Qty: 90 1RF omeprazole 20 mg capsule,delayed release(DR/EC) 20 mg PO DAILY Qty: 90 0RF gabapentin 300 mg capsule 300 mg PO .QHS Qty: 90 0RF metformin 1,000 mg tablet 1,000 mg PO QDAY Qty: 90 1RF Follow Up/Referrals: Johnson [place] MD [Primary Care Provider] - Stand Alone Forms: Accellion Info Instructions
--- OUTSIDE RECORDS SUMMARY | 2024-07-01 20:11 | XMS_ITS | Encounter Summary ---
Author Organization [facility] Address [address] [place] [address] Care Team Providers Care Surface Plate Finisher Name Role Phone Elsewhere, Pcp Primary Care [...] floaters. He was seen by his local Home Sales Service Professional for this and was told these were floaters. He denies changes with his vision. No flashes of light. JAL: DM dx in 11/14. He sees Dr. Horton in [place] who found a lot of scarring - no outside eye notes available to me. IMPRESSION / REPORT / PLAN Consult requested by: Nestor Erazo [id number] #1 Diabetes mellitus, no eye complications. Plan: monitor periodically. He is seen regularly at home. #2 Hypertension, with ocular findings. DIAGNOSIS #1 Diabetes mellitus, no eye complications. #2 Hypertension, with ocular findings. [facility] Reports - EYEGEN Id: [id number] Status: Fnl documented in this encounter Plan of Treatment Not on file documented as of this encounter Visit Diagnoses Not on filedocumented in this encounter Care Teams Surface Plate Finisher Relationship Specialty Start Date End Date Elsewhere, Pcp PCP - General Family Medicine 11/10/20 documented as of this encounter
--- OUTSIDE RECORDS SUMMARY | 2024-07-01 20:11 | XMS_ITS ---
Author Organization [facility] Address [address] [place] [address] Care Team Providers Care Nursing Program Chair Name Role Phone Unavailable Unavailable Unavailable Surgery Details Not on file Complications Check Surgery Details section. Procedure Estimated Blood Loss Check Surgery Details section. Procedure Findings Check Surgery Details section. Procedure Specimens Taken Check Surgery Details section.
--- OUTSIDE RECORDS SUMMARY | 2024-07-01 20:11 | XMS_ITS | Clinical Summary ---
Author Organization [facility] Address [address] [place] [address] Care Team Providers Care Drilling Field Professional Name Role Phone Elsewhere, Pcp Primary Care Provider Unavailabl e Source Comments Patient records contain information from all sites at [facility]. For routine questions regarding patient records, call [phone] during business hours, M-F 8:00 AM - 5:00 PM Central Time. Record requests for emergency care only can be directed to [phone] at any time.[facility] Allergies Active Allergy Reactions Criticality Noted Date [...] F on file for: Qiana Cell #: [phone] Trinh pedersen goes to [place] Problem Noted Date Diagnosed Date Hyperlipidemia 2018 [...] Risk Medication 03/29/2016 Bicuspid Aortic Valve 10/15/2015 Nursing Home (Current) Anticoagulant Treatment 08/08 Primary Osteoarthritis Cervical [...] right mastiod showed lupus eryhtematosus. Done at [facility]. Diverticulosis Colon 03/20/2011 Overview (05/18/2018): Per CTA of Abdomen done at [facility]. Renal Cyst Disease 03/20/2011 Overview (05/18/2018): Per CTA of Abdomen done at [facility]. Sprain Rotator Cuff Initial 03/20/2011 Overview (05/18/2018): High grade supraspinatous and infraspinatous. MRI done at [facility]. 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 Hypertensive Retinopathy 05/15/2008 Atherosclerotic Heart Diseas e Of [place] Coronary Artery Without Angina Pectoris 05/14/2008 Abuse [...] FIT Discontinued Medical Devices Implanted Type Area Hvac Estimator Device Identifier Shelf Expiration Date Model / Serial / Lot Premier 3.0 X 12 - Augilar [id number] Implanted:Qty: 1 on 09/09/2015 Cardiac Stent [employer] Description:Device Manufactu rer - [employer]. Device Status Text - [id number]. Premier 3.0 X 28 - Aguilar [id number] Implanted:Qty: 1 on 09/09/2015 Cardiac Stent [employer] Description:Device Manufactu rer - [employer]. Device Status Text - [id number]. Premier 4.0 X 20 - Aguilar [id number] Implanted:Qty: 1 on 09/09/2015 Cardiac Stent [employer] Description:Device Manufactu rer - [employer]. Device Status Text - [id number]. Hip Implant Hip Implant Right: Hip Hip Implant- 6 Implanted:2015 (Quantity not on file) Hip Implant Right: Hip Procedures Procedure Name Priority Date/Time Associated Diagnosis Comments BASIC METABOLIC PANEL, S/P Routine 09/27/2023 2:16 PM [facility] Atherosclerotic Heart Disease Of [place] Coronary Artery Without Angina Pectoris Peripheral Vascular Disease (HCC) Bicuspid Aortic Valve (HCC) HEMOGLOBIN A1C, B Routine 10/24/2020 9:0 3 AM [facility] Diabetes Mellitus Type 2 With Diabetic Neuropathy [...] (ABNORMAL) Basic Metabolic Panel (09/27/2023 2:16 PM [facility]) Potassium, P 5.0 3.6 - 5.2 mmol/L 09/27/2023 2:58 PM [facility] [employer] NPRG Sodium, P 140 135 - 145 mmol/L 09/27/2023 2:58 PM [facility] [employer] NPRG Chloride, P 104 98 - 107 mmol/L 09/27/2023 2:58 PM [facility] [employer] NPRG Bicarbonate, P 23 22 - 29 mmol/L 09/27/2023 2:59 PM [facility] [employer] NPRG Anion Gap, P 13 7 - 15 09/27/2023 2:58 PM [facility] [employer] NPRG BUN (Blood Urea Nitrogen), P 26(H) 8 - 24 mg/dL 09/27/2023 2:59 PM [facility] [employer] NPRG Creatinine 1.57(H) 0.74 - 1.35 mg/dL 09/27/2023 2:59 PM [facility] NPRG Estimated GFR (eGFR) 45(L) >=60 mL/min/BSA 09/27/2023 2:59 PM [facility] NPRG Comment: Estimated GFR calculated using the 2020 CKD_EPI creatinine equation. Calcium, Total, P 9.4 8.8 - 10.2 mg/dL 09/27/2023 2:59 PM [facility] [employer] NPRG Glucose, P 92 70 - 140 mg/dL 09/27/2023 2:59 PM [facility] NPRG Blood (Blood, Venous) 09/27/2023 2:16 PM [facility] 09/27/2023 2:26 PM [facility] Len Cardoza M.D. LAB BLOOD ADD-ON Performing Organization Address City/[facility]/ZIP Co de Phone Number [facility] [address] [place] [address], [place] NPRG [facility] [address] [place] [address] * (ABNORMAL) Hemoglobin A1c (10/24/2020 9:03 AM [facility]) Hemoglobin A1c, B 6.0(H) 4.2 - 5.6 % 10/24/2020 11:30 AM [facility] OWAT Comment: Hemoglobin A1c values of 5.7-6.4 percent indicate an increased risk for developing diabetes mellitus. In diabetic patients, HbA1c goals should be discussed with healthcare provider. Blood (Blood, Venous) 10/24/2020 9:03 AM [facility] 10/24/2020 10:40 AM [facility] Jordan Wyman M.D. LAB BLO OD ADD-ON [facility] [address] [place] [address], [place] OWAT [facility] [place] [address] [place] [address] * (ABNORMAL) Albumin, Random, Urine (07/25/2020 12:28 PM CDT) Microalbumin 31.0 mg/L 07/25/2020 4:11 PM CDT OWAT Creatinine 78 mg/dL 07/25/2020 4:11 PM CDT OWAT Albumin/Creatinin e Ratio 40(H) <17 mg/g 07/25/2020 4:11 PM CDT OWAT Urine (Urine, Clean Catch) 07/25/2020 12:28 PM CDT 07/25/2020 3:30 PM CDT Jordan Wyman M.D. LAB URI NE ORDERABLES Performing Organization Address City/[facility] Co de Phone Number [facility] [address] [place] [address], [place] OWAT [facility] [place] [address] [place] [address] * HCV Ab w/Reflex to HCV PCR, S (medicare) (03/15/2017 8:25 AM CDT) HXHCV Ab [facility] Negative Negative POWERCHART Comment: [id number] ratio is <1.00. Test Performed by: [place] [address] Blood 03/15/2017 8:25 AM CDT Starr Santos M.D. LAB MICROBIOLOGY - B LOOD ORDERABLES Performing Organization Address [facility] de Phone Number POWERCHART * US [...] Recently Relevant to Health Maintenance Care Teams Drilling Field Professional Relationship Specialty Start Date End Date Elsewhere, Pcp PCP - General Family Medicine 11/10/20
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
--- OUTSIDE RECORDS SUMMARY | 2024-07-01 20:11 | XMS_ITS | Encounter Summary ---
Author Organization [facility] Address [address] [place] [address] Care Team Providers Care Oil Well Shooter Name Role Phone Elsewhere, Pcp Primary Care [...] as green or could be purple or advanced research programs director yellow. As soon as he goes to sleep then he does not notice them. JAL: Glucose 123, A1C 6.5% today. He saw an eye care provider (Dr.Mary Clark) at home ~ 3 -4 months ago. Had floaters that are mostly gone - only now at night sees different colors. 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 Plan: monitor periodically. 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 CDM Reports - EYEGEN Id: [id number] Status: Fnl documented in this encounter Plan of Treatment Not on file documented as of this encounter Visit Diagnoses Not on filedocumented in this encounter Care Teams Oil Well Shooter Relationship Specialty Start Date End Date Elsewhere, Pcp PCP - General Family Medicine 11/10/20 documented as of this encounter
[2024-07-01 20:27] LABS: Basophils Absolute Auto 0.02 K/uL (0.00-0.30); Basophils Percent Auto 0.3 % (0.0-3.0); Eosinophils Absolute Auto 0.26 K/uL (0.00-0.50); Eosinophils Percent Auto 3.3 % (0.0-7.0); Hematocrit 39.2 % (37.0-53.0); Hemoglobin* 12.9 gm/dL (13.5-17.5); Immature Granulocytes Abs Auto 0.01 K/uL (0.00-0.30); Immature Granulocytes Pct Auto 0.1 %; Lymphocytes Percent Auto 12.9 % (20-44); Mean Corpuscular HGB Conc 33 gm/dL (32-36); Mean Corpuscular Hemoglobin 32 pg (26-34); Mean Corpuscular Volume 96 fL (80-100); Neutrophils Percent Auto 76.4 % (42.0-72.0); Platelet Count* 198 K/uL (140-440); Red Blood Count 4.07 m/uL (4.30-5.90); White Blood Count* 7.89 K/uL (4.50-11.00)
[2024-07-01 20:30] LABS: Slide Review Reflex No
[2024-07-01 20:39] LABS: Albumin* 4.1 g/dL (3.3-5.0); Chloride* 104 mmol/L (96-114)
[2024-07-01 20:40] LABS: Sodium* 132 mmol/L (135-149)
[2024-07-01 20:42] LABS: Alkaline Phosphatase* 29 U/L (40-150); Anion Gap 11 mEq/L (7-15); Aspartate Amino Transferase* 32 U/L (12-35); Bilirubin Direct* 0.3 mg/dL (0.0-0.5); Bilirubin Total* 0.5 mg/dL (0.1-1.5); Blood Urea Nitrogen* 18 mg/dL (7-30); Carbon Dioxide* 17 mmol/L (20-32); Creatinine* 1.6 mg/dL (0.5-1.5); Est. Creatinine Clearance* 37.41; Estimated Glomerular Filt Rate 44 ml/min; Lipase* 174 U/L (23-300); Total Protein* 7.3 g/dL (6.0-8.3)
[2024-07-01 20:43] LABS: Alanine Aminotransferase* 15 U/L (4-50); Calcium* 8.8 mg/dL (8.4-10.6); Ethanol* 0.14 % (0.01-0.03); Glucose* 80 mg/dL (60-115)
[2024-07-01 20:54] LABS: Troponin I* 0.01 ng/mL (0.01-0.04)
[2024-07-01 21:00] LABS: C Reactive Protein* < 0.5 mg/dL (0.5-1.0); NT Pro B Type NatriureticPept* 842 pg/mL
[2024-07-01] MEDS: 0.9 % SODIUM CHLORIDE 500 ML 500 ML IV (21:05)
== END 2024-07-01 21:56 | disposition home or self-care (01) ==
PROVIDERS: Emergency Provider Family Medicine; PCP Family Medicine
DX: R53.1 Weakness (principal); F10.129 Alcohol abuse with intoxication, unspecified; R06.89 Other abnormalities of breathing
CPT/HCPCS: 36415; 70450; 71045; 80048; 80076; 82077; 83690; 83880; 84484; 85025; 86140; 93005; 94761; 99284; 99285; J7030

== ENCOUNTER 2025-02-11 11:31 | Outpatient (CLI) | payer MEDICARE, BC, SELFPAY | END 2025-02-11 11:32 | disposition home or self-care (01) | LOC: FBOREF 11:32 | PROVIDERS: PCP Family Medicine; Visit Provider Family Medicine | DX: I10 Essential (primary) hypertension (principal); E78.2 Mixed hyperlipidemia; E11.40 Type 2 diabetes mellitus with diabetic neuropathy, unspecified | CPT/HCPCS: 80048; 80061; 84460 ==

== ENCOUNTER 2025-08-30 09:15 | Outpatient (RCR) | payer MEDICARE, BC, SELFPAY | END 2025-09-12 11:21 | disposition home or self-care (01) | PROVIDERS: PCP Family Medicine; Visit Provider Family Medicine | DX: H81.10 Benign paroxysmal vertigo, unspecified ear (principal); Z51.89 Encounter for other specified aftercare | CPT/HCPCS: 97110; 97112; 97116; 97162 ==

== ENCOUNTER 2025-10-15 10:15 | Outpatient (CLI) | payer MEDICARE, BC, SELFPAY | END 2025-10-15 10:16 | disposition home or self-care (01) | LOC: NFLDREF 10-21 18:27 | PROVIDERS: PCP Family Medicine; Referring Provider Family Medicine; Visit Provider Family Medicine | DX: E11.9 Type 2 diabetes mellitus without complications (principal) | CPT/HCPCS: 82043; 82570 ==